=== PATIENT | female | born 1965 | race Caucasian/White ===

== ENCOUNTER 2016-11-11 13:43 | Observation (INO) | payer OTHER ==
[2016-11-11] MEDS ORDERED: Aspirin 325 mg EC Tablets PO STA (14:07)
[2016-11-11 14:36] LABS: BASO # 0.1 K/uL (0.0-0.2); EOS # 0.2 K/uL (0.0-0.7); EOS % 2.8 % (0.0-4.0); HEMATOCRIT 35.8 % (34.0-47.0); LYMPH # 2.1 K/uL (1.0-4.3); MEAN CORPUSCULAR HEMOGLOBIN 29.1 pg (27.0-31.0); MEAN CORPUSCULAR HGB CONC 33.8 g/dL (33.0-37.0); MEAN PLATELET VOLUME 7.2 fL (7.2-11.7); MONO # 0.4 K/uL (0.0-0.8); MONO % 6.8 % (0.0-10.0); RED CELL DISTRIBUTION WIDTH 13.8 % (11.5-14.5); WHITE BLOOD COUNT 5.6 K/uL (4.8-10.8)
[2016-11-11 14:45] LABS: CHLORIDE 104 mmol/L (98-107); POTASSIUM 3.7 mmol/L (3.6-5.2); SODIUM 142 mmol/L (132-148)
[2016-11-11 14:47] LABS: GFR AFRICAN-AMERICAN > 60
[2016-11-11 14:48] LABS: ALB/GLOB RATIO 1.2 (1.0-2.1); ALKALINE PHOSPHATASE 54 U/L (38-126); ALT/SGPT 33 U/L (9-52); AST/SGOT 30 U/L (14-36); BILIRUBIN,TOTAL 0.6 mg/dL (0.2-1.3); BLOOD UREA NITROGEN 11 mg/dL (7-17); CALCIUM 8.8 mg/dl (8.6-10.4); CARBON DIOXIDE 27 mmol/L (22-30); GLUCOSE,RANDOM 88 mg/dL (65-105); TOTAL PROTEIN 7.4 g/dL (6.3-8.3)
--- NOTE | 2016-11-11 14:56 | RAD ---
PROCEDURE: CHEST RADIOGRAPH, 1 VIEW HISTORY: chest pain COMPARISON: 01/09/2016 FINDINGS: LUNGS: No focal infiltrate or effusion. PLEURA: No pneumothorax or pleural fluid seen. CARDIOVASCULAR: Normal. OSSEOUS STRUCTURES: No significant abnormalities. VISUALIZED UPPER ABDOMEN: Normal. OTHER FINDINGS: None. IMPRESSION: No active disease.
[2016-11-11 15:03] LABS: INR 1.1; PARTIAL THROMBOPLASTIN TIME 33 SECONDS (21-34)
--- NOTE | 2016-11-11 16:15 | C.PDOC ---
Time Seen by Provider: 11/11/16 13:56 Chief Complaint (Nursing): Chest Pain History Per: Patient, Family, Forklift Operator History/Exam Limitations: language barrier Onset/Duration Of Symptoms: Hrs (since this morning) Current Symptoms Are (Timing): Still Present Severity: Moderate Quality: "Pain" Associated Symptoms: Dyspnea Modifying Factors: Other Indicated Below Alleviating Factors: None Additional History Per: Prior Records Past Medical History Reviewed: Historical Data, Nursing Documentation, Vital Signs Vital Signs: Last Vital Signs Temp 98.4 F 11/11/16 13:50 Pulse 51 L 11/11/16 16:02 Resp 20 11/11/16 16:02 BP 127/62 11/11/16 16:02 Pulse Ox 100 11/11/16 16:02 - Medical History PMH: HTN Surgical History: Coronary Stent, Family History: States: Unknown Family Hx - Social History Hx Alcohol Use: No Hx Substance Use: No - Immunization History Hx Influenza Vaccination: No Hx Pneumococcal Vaccination: No Review Of Systems Except As Marked, All Systems Reviewed And Found Negative. Constitutional: Negative for: Fever, Weakness Cardiovascular: Positive for: Chest Pain Respiratory: Positive for: Shortness of Breath. Negative for: Hemoptysis Gastrointestinal: Negative for: Vomiting, Abdominal Pain Musculoskeletal: Positive for: Arm Pain (left) Skin: Negative for: Rash Neurological: Negative for: Weakness, Numbness, Seizures, Altered Mental Status Physical Exam - Physical Exam Appears: No Acute Distress Skin: Normal Color, Warm, Dry Head: Atraumatic Eye(s): bilateral: PERRL, EOMI Neck: Normal ROM, Supple Cardiovascular: Rhythm Regular (bradycardia) Respiratory: Normal Breath Sounds, No Accessory Muscle Use Gastrointestinal/Abdominal: Soft, No Tenderness Extremity: Normal ROM, No Pedal Edema, No Calf Tenderness Neurological/Psych: Oriented x3, Normal Motor, Normal Sensation ED Course And Treatment - Laboratory Results Result Diagrams: 11/11/16 14:29 11/11/16 14:29 Lab Interpretation: No Acute Changes ECG: Interpreted By Me, Viewed By Me ECG Rhythm: Sinus Bradycardia, Nonspecific Changes ECG Interpretation: Abnormal Rate From EC O2 Sat by Pulse Oximetry: 100 Pulse Ox Interpretation: Normal - Radiology CXR: Viewed By Me, Read By Radiologist CXR Interpretation: Yes: No Acute Disease Progress - Interventions Interventions:: Observation, Oxygen - Medications Administered Oral: Aspirin - Data Reviewed Data Reviewed: Lab, Diagnostic imaging, EKG, Old records - Patient Status Patient status: Partially improved - Continuity of Care Discussed patient case with:: Patient, Family-HIPPA compliant, ED Nurse, On- call PMD-pt unassigned Disposition Discussed With : Igor Evans Comment: He accepted pt on hospitalist service. Doctor Will See Patient In The: Hospital Counseled Patient/Family Regarding: Studies Performed, Diagnosis - Disposition Disposition: HOSPITALIZED Disposition Time: 16:17 Condition: FAIR - Clinical Impression Clinical Impression: Chest pain, rule out acute myocardial infarction, Sinus bradycardia
--- NOTE | 2016-11-11 17:06 | CP.PCM.HP ---
History of Present Illness - History of Present Illness History of Present Illness: CC: Chest Pain Patient is a 51 year old female with past medical history HTN and MN 5 years ago in [facility] who presents to ED with complaint of chest pain that began at 2AM. Patient reports similar pain 5 years ago when she had an MN. Patient states that the pain comes and goes and she feels the pain radiate to her left arm and back. Pain is partially reproducible but also occurs without pressing on her chest. Patient states she also has a headache with the chest pain and felt dizzy/ faint. Patient also complains of cough but states it is not productive. Patient complains of pain on inspiration, with pain localizing to lower back. Patient reports diarrhea for 3 days- watery stools, as well as dysuria. Patient denies nausea, vomiting, diaphoresis. Patient also reports leg swelling. At time of examination patient reported improvement in pain. PMD: [facility] Cardio: [facility] PMHx: HTN, MN Meds: enalapril 20mg PO BID, Coreg 6.25mg PO BID, HCTZ 25mg, asa 81mg PSHx: x 1, cardiac cath in [facility] 5 years ago- no stents per patient FamHx: mother MN @ age 50, father with heart disease Social: never smoked, denies alcohol use, lives with , does not work Present on Admission - Present on Admission Any Indicators Present on Admission: No Review of Systems - Constitutional Constitutional: Weakness. absent: Chills, Fever - EENT Eyes: absent: Change in Vision Nose/Mouth/Throat: absent: Nasal Congestion - Cardiovascular Cardiovascular: Chest Pain, Pain Radiating to Arm/Neck/Jaw, Lightheadedness, Pedal Edema, Radiating Pain. absent: Dyspnea - Respiratory Respiratory: Cough - Gastrointestinal Gastrointestinal: Diarrhea. absent: Nausea, Vomiting - Genitourinary Genitourinary: Dysuria - Musculoskeletal Musculoskeletal: Back Pain - Neurological Neurological: Dizziness, Weakness. absent: Confusion Past Patient History - Infectious Disease Hx of Infectious Diseases: None - Past Social History Smoking Status: Never Smoked - CARDIAC Hx Hypertension: Yes - PSYCHIATRIC Hx Substance Use: No - SURGICAL HISTORY Hx Coronary Stent: Yes - ANESTHESIA Hx Anesthesia: Yes Hx Anesthesia Reactions: No Meds Allergies/Adverse Reactions: Allergies Allergy/AdvReac Type Severity Reaction Status Date / Time ampicillin Allergy Verified 11/11/16 13:48 Penicillins Allergy Verified 11/11/16 13:48 Physical Exam - Constitutional Appears: Non-toxic, No Acute Distress, Other (uncomfortable) - Head Exam Head Exam: ATRAUMATIC, NORMOCEPHALIC - Eye Exam Eye Exam: EOMI - ENT Exam ENT Exam: Mucous Membranes Moist - Neck Exam Neck exam: Positive for: Normal Inspection - Cardiovascular Exam Cardiovascular Exam: Bradycardia, +S1, +S2 Additional comments: tenderness on palpation of sternum - GI/Abdominal Exam GI & Abdominal Exam: Normal Bowel Sounds, Soft. absent: Tenderness - Extremities Exam Extremities exam: Positive for: pedal edema (mild non-pitting edema bilateral lower extremities) - Neurological Exam Neurological exam: Alert, Oriented x3 - Psychiatric Exam Psychiatric exam: Normal Affect - Skin Skin Exam: Warm Results - Vital Signs Recent Vital Signs: Last Vital Signs Temp 98.4 F 11/11/16 13:50 Pulse 51 L 11/11/16 16:02 Resp 20 11/11/16 16:02 BP 127/62 11/11/16 16:02 Pulse Ox 100 11/11/16 16:18 - Labs Result Diagrams: 11/11/16 14:29 11/11/16 14:29 Assessment & Plan - Assessment and Plan (Free Text) Assessment: 51 year old female with PMHx of [place] 5 years ago, positive family history for [place], presenting with chest pain that radiates to left arm and back Chest pain, R/O ACS EKG with sinus bradycardia at 48bpm will monitor on telemetry first KANE negative, will trend x 2 will check thyroid studies, Hgb a1c, lipid panel will repeat EKG tomorrow AM d-dimer <200 In clinic, patient sees Dr. Plaza, cardiology, consulted- help appreciated HTN will continue home medications: coreg, HCTZ, enalapril Prophylaxis heparin 5000u sc
[2016-11-11 20:26] VITALS: RESP 20
[2016-11-11] MEDS ORDERED: Nitroglycerin 2% Ointment Foilpak UD TOP STA (23:06)
--- NOTE | 2016-11-11 23:12 | PCM.RRTMUL ---
BLACK TOPPER Nurses Assessment - Situation BLACK TOPPER Responder Arrival Time:: 20:57 BLACK TOPPER Reason for Call: Chest Pain BLACK TOPPER Called By: RN - Respiratory Oxygen Delivery Method:: Nasal Cannula - Medication Medications Administered During BLACK TOPPER :: half inch of nitro - Vital Signs Blood Pressure:: 115/74 Pulse Rate:: 50 Respiratory Rate:: 20 Temperature:: 98.4 F - [place] Coma Scale Coma Scale Eye Opening:: Spontaneous Coma Scale Motor:: Obeys Commands Movement Coma Scale Verbal:: Oriented Coma Scale Total:: 15 - Recommendations 6) Notifications: Attending Physician, Family or Designated Caregiver
[2016-11-12] MEDS ORDERED: Sodium Chloride 0.9% 500 ML IV ONE (05:40)
--- NOTE | 2016-11-12 05:40 | CP.PCM.CON ---
Past Patient History - Infectious Disease Hx of Infectious Diseases: None - Past Medical History & Family History Past Medical History?: Yes - Past Social History Smoking Status: Never Smoked - CARDIAC Hx Heart Attack: Yes (5 years ago in [facility]) Hx Hypertension: Yes - MUSCULOSKELETAL/RHEUMATOLOGICAL Hx Falls: No - PSYCHIATRIC Hx Substance Use: No - SURGICAL HISTORY Hx Cardiac Catheterization: Yes Hx Coronary Stent: Yes - ANESTHESIA Hx Anesthesia: Yes Hx Anesthesia Reactions: No Meds Allergies/Adverse Reactions: Allergies Allergy/AdvReac Type Severity Reaction Status Date / Time ampicillin Allergy Verified 11/11/16 13:48 Penicillins Allergy Verified 11/11/16 13:48 - Medications Medications: Current Medications Acetaminophen (Tylenol 325mg Tab) 650 mg PO Q6 PRN PRN Reason: Pain, Mild (1-3) Aspirin (Aspirin Chewable) 81 mg PO DAILY [facility] Carvedilol (Coreg) 6.25 mg PO BID [facility] Last Admin: 11/11/16 20:00 Dose: Not Given Enalapril Maleate (Vasotec) 20 mg PO BID [facility] Last Admin: 11/11/16 20:00 Dose: Not Given Heparin Sodium (Porcine) (Heparin) 5,000 units SC Q8 [facility] Last Admin: 11/11/16 23:41 Dose: 5,000 units Hydrochlorothiazide (Hydrodiuril) 25 mg PO DAILY [facility] Pneumococcal Polyvalent Vaccine (Pneumovax 23 Vaccine) 0.5 ml IM .ONCE ONE Stop: 11/14/16 10:01 Rosuvastatin Calcium (Crestor) 5 mg PO HS [facility] Last Admin: 11/11/16 23:41 Dose: 5 mg Results - Vital Signs Recent Vital Signs: Last Vital Signs Temp 98.2 F 11/12/16 04:33 Pulse 50 L 11/12/16 04:33 Resp 20 11/12/16 04:33 BP 95/56 L 11/12/16 04:33 Pulse Ox 97 11/12/16 04:33 - Labs Result Diagrams: 11/11/16 14:29 11/11/16 14:29 Labs: Laboratory Results - last 24 hr 11/11/16 11/12/16 21:13 02:11 Total Creatine Kinase 99 94 CK-MB (Mass) 0.58 0.49 Troponin I, Quant < 0.0120 < 0.0120
[2016-11-12 07:33] LABS: BASO % 0.7 % (0.0-2.0); EOS # 0.2 K/uL (0.0-0.7); EOS % 3.4 % (0.0-4.0); LYMPH # 2.3 K/uL (1.0-4.3); LYMPH % 44.8 % (20.0-40.0); MEAN CELL VOLUME 86.8 fL (81.0-99.0); MEAN CORPUSCULAR HEMOGLOBIN 29.4 pg (27.0-31.0); MEAN CORPUSCULAR HGB CONC 33.8 g/dL (33.0-37.0); MEAN PLATELET VOLUME 7.4 fL (7.2-11.7); MONO # 0.3 K/uL (0.0-0.8); MONO % 6.6 % (0.0-10.0); NRBC % 0.1 % (0.0-2.0); RED CELL DISTRIBUTION WIDTH 14.1 % (11.5-14.5); WHITE BLOOD COUNT 5.1 K/uL (4.8-10.8)
[2016-11-12 07:56] LABS: CHLORIDE 105 mmol/L (98-107)
[2016-11-12 07:57] LABS: POTASSIUM 3.6 mmol/L (3.6-5.2); SODIUM 141 mmol/L (132-148)
[2016-11-12 07:59] LABS: ALB/GLOB RATIO 1.1 (1.0-2.1); ALKALINE PHOSPHATASE 52 U/L (38-126); AST/SGOT 21 U/L (14-36); BILIRUBIN,TOTAL 0.5 mg/dL (0.2-1.3); BLOOD UREA NITROGEN 14 mg/dL (7-17); CARBON DIOXIDE 26 mmol/L (22-30); CHOLESTEROL 148 mg/dL (0-199); GFR AFRICAN-AMERICAN > 60; GLUCOSE,RANDOM 89 mg/dL (65-105); TOTAL PROTEIN 6.7 g/dL (6.3-8.3)
[2016-11-12 08:00] LABS: ALT/SGPT 31 U/L (9-52); CALCIUM 8.4 mg/dl (8.6-10.4)
[2016-11-12 08:06] LABS: THYROID STIMULATING HORMONE 3.57 mIU/L (0.46-4.68)
[2016-11-12] MEDS ORDERED: Pantoprazole 40 mg EC Tab PO SCH (10:00)
[2016-11-12] MEDS ORDERED: Potassium Chloride 20 mEq ER Tab PO ONE (13:43)
--- NOTE | 2016-11-12 21:20 | CP.PCM.PN ---
Subjective - Date & Time of Evaluation Date of Evaluation: 11/12/16 Time of Evaluation: 10:00 - Subjective Subjective: PGY2 on medicine Dr. Parnell service: Pt seen and examined at bedside this morning. 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 No other complaints at this time. Objective - Vital Signs/Intake and Output Vital Signs (last 24 hours): Temp Pulse Resp BP Pulse Ox 97.9 F 45 L 20 119/61 99 11/12/16 16:18 11/12/16 16:18 11/12/16 16:18 11/12/16 16:18 11/12/16 16:18 - Medications Medications: Current Medications Acetaminophen (Tylenol 325mg Tab) 650 mg PO Q6 PRN PRN Reason: Pain, Mild (1-3) Aspirin (Aspirin Chewable) 81 mg PO DAILY [facility] Last Admin: 11/12/16 09:31 Dose: 81 mg Carvedilol (Coreg) 6.25 mg PO BID [facility] Last Admin: 11/12/16 17:28 Dose: Not Given Enalapril Maleate (Vasotec) 20 mg PO BID [facility] Last Admin: 11/12/16 09:31 Dose: 20 mg Heparin Sodium (Porcine) (Heparin) 5,000 units SC Q8 [facility] Last Admin: 11/12/16 13:25 Dose: 5,000 units Hydrochlorothiazide (Hydrodiuril) 25 mg PO DAILY [facility] Last Admin: 11/12/16 09:30 Dose: 25 mg Ketorolac Tromethamine (Toradol) 30 mg IVP Q6 PRN PRN Reason: moderate pain Last Admin: 11/12/16 13:25 Dose: 30 mg Pneumococcal Polyvalent Vaccine (Pneumovax 23 Vaccine) 0.5 ml IM .ONCE ONE Stop: 11/14/16 10:01 Rosuvastatin Calcium (Crestor) 5 mg PO HS [facility] Last Admin: 11/11/16 23:41 Dose: 5 mg - Labs Labs: 11/12/16 07:15 11/12/16 07:15 PT 12.6 SECONDS (9.7-12.2) H 11/11/16 14:29 INR 1.1 11/11/16 14:29 APTT 33 SECONDS (21-34) 11/11/16 14:29 - Constitutional Appears: Non-toxic, No Acute Distress - Head Exam Head Exam: NORMOCEPHALIC - Eye Exam Eye Exam: Normal appearance Pupil Exam: NORMAL ACCOMODATION - Respiratory Exam Respiratory Exam: Chest Wall Tenderness, Clear to Ausculation Bilateral, NORMAL BREATHING PATTERN. absent: Rhonchi, Wheezes - Cardiovascular Exam Cardiovascular Exam: REGULAR RHYTHM, +S1, +S2. absent: Gallop, Rubs - GI/Abdominal Exam GI & Abdominal Exam: Soft, Normal Bowel Sounds. absent: Tenderness - Neurological Exam Neurological Exam: Alert, Awake, Oriented x3 - Psychiatric Exam Psychiatric exam: Normal Mood - Skin Skin Exam: Intact Assessment and Plan - Assessment and Plan (Free Text) Assessment: 51 year old female with PMHx of [place] 5 years ago, positive family history for AL, presenting with chest pain that radiates to left arm and back Chest pain, R/O ACS EKG with sinus bradycardia at 48bpm KANE negative. Repeat EKG today at rapid showed sinus bradycardia at 45bpm with QT at 580ms. d-dimer <200 Toradol PRN In clinic, patient sees Dr. Plaza, cardiology, consulted- help appreciated F/U ECHO HTN will continue home medications: coreg, HCTZ, enalapril Prophylaxis heparin 5000u sc
--- NOTE | 2016-11-13 05:19 | CP.PCM.PN ---
Subjective - Date & Time of Evaluation Date of Evaluation: 11/13/16 Time of Evaluation: 00:30 - Subjective Subjective: PGY1 on medicine Dr. Parnell service: Patient seen and examined at bedside this morning. Patient stated her chest pressure had improved and was a 3/10. Patient stated she had a headache. Patient denied of nausea, vomiting, difficulty breathing or shortness of breath. Objective - Vital Signs/Intake and Output Vital Signs (last 24 hours): Temp Pulse Resp BP Pulse Ox 98 F 46 L 20 110/69 100 11/13/16 04:22 11/13/16 04:22 11/13/16 04:22 11/13/16 04:22 11/13/16 04:22 - Medications Medications: Current Medications Acetaminophen (Tylenol 325mg Tab) 650 mg PO Q6 PRN PRN Reason: Pain, Mild (1-3) Aspirin (Aspirin Chewable) 81 mg PO DAILY [facility] Last Admin: 11/12/16 09:31 Dose: 81 mg Carvedilol (Coreg) 6.25 mg PO BID [facility] Last Admin: 11/12/16 17:28 Dose: Not Given Enalapril Maleate (Vasotec) 20 mg PO BID [facility] Last Admin: 11/12/16 18:00 Dose: Not Given Heparin Sodium (Porcine) (Heparin) 5,000 units SC Q8 [facility] Last Admin: 11/12/16 23:22 Dose: 5,000 units Hydrochlorothiazide (Hydrodiuril) 25 mg PO DAILY [facility] Last Admin: 11/12/16 09:30 Dose: 25 mg Ketorolac Tromethamine (Toradol) 30 mg IVP Q6 PRN PRN Reason: moderate pain Last Admin: 11/12/16 13:25 Dose: 30 mg Pneumococcal Polyvalent Vaccine (Pneumovax 23 Vaccine) 0.5 ml IM .ONCE ONE Stop: 11/14/16 10:01 Rosuvastatin Calcium (Crestor) 5 mg PO HS [facility] Last Admin: 11/12/16 23:22 Dose: 5 mg - Labs Labs: 11/12/16 07:15 11/12/16 07:15 PT 12.6 SECONDS (9.7-12.2) H 11/11/16 14:29 INR 1.1 11/11/16 14:29 APTT 33 SECONDS (21-34) 11/11/16 14:29 - Constitutional Appears: No Acute Distress - Head Exam Head Exam: NORMAL INSPECTION, NORMOCEPHALIC - Eye Exam Eye Exam: EOMI, Normal appearance, PERRL Pupil Exam: NORMAL ACCOMODATION - ENT Exam ENT Exam: Mucous Membranes Moist - Respiratory Exam Respiratory Exam: Clear to Ausculation Bilateral, NORMAL BREATHING PATTERN. absent: Rales, Rhonchi, Wheezes, Stridor - Cardiovascular Exam Cardiovascular Exam: REGULAR RHYTHM, RRR, +S1, +S2. absent: JVD - GI/Abdominal Exam GI & Abdominal Exam: Soft, Normal Bowel Sounds. absent: Guarding, Tenderness, Rebound - Extremities Exam Extremities Exam: Normal Capillary Refill. absent: Calf Tenderness, Joint Swelling, Pedal Edema, Tenderness - Neurological Exam Neurological Exam: Alert, Awake, Oriented x3 - Skin Skin Exam: Dry, Intact, Normal Color, Warm. absent: Rash Assessment and Plan - Assessment and Plan (Free Text) Assessment: 51 year old female with past medical history of [place] 5 years ago, positive family history for [place], presenting with chest pain that radiates to left arm and back Plan: 1.) Chest pain, R/O Acute Coronary Syndrome - EKG with sinus bradycardia at 48bpm - KANE negative x3 - Repeat EKG today at rapid showed (11/13/16) sinus bradycardia at 45bpm with QT at 580ms. - d-dimer <200 - Toradol PRN - In clinic, patient sees Dr. Plaza, cardiology, consulted --> help appreciated - f/u ECHO 2.) Hypertension - will continue home medications: coreg, HCTZ, enalapril 3.) Prophylaxis - heparin 5000u SC q8 - Pneumovax 23 Vaccine
--- NOTE | 2016-11-13 06:51 | CP.PCM.PN ---
Subjective - Date & Time of Evaluation Date of Evaluation: 11/13/16 Time of Evaluation: 06:51 Objective - Vital Signs/Intake and Output Vital Signs (last 24 hours): Temp Pulse Resp BP Pulse Ox 98 F 46 L 20 110/69 100 11/13/16 04:22 11/13/16 04:22 11/13/16 04:22 11/13/16 04:22 11/13/16 04:22 Intake and Output: 11/12/16 11/13/16 18:59 06:59 Intake Total 120 Balance 120 - Medications Medications: Current Medications Acetaminophen (Tylenol 325mg Tab) 650 mg PO Q6 PRN PRN Reason: Pain, Mild (1-3) Aspirin (Aspirin Chewable) 81 mg PO DAILY [facility] Last Admin: 11/12/16 09:31 Dose: 81 mg Carvedilol (Coreg) 6.25 mg PO BID [facility] Last Admin: 11/12/16 17:28 Dose: Not Given Enalapril Maleate (Vasotec) 20 mg PO BID [facility] Last Admin: 11/12/16 18:00 Dose: Not Given Heparin Sodium (Porcine) (Heparin) 5,000 units SC Q8 [facility] Last Admin: 11/13/16 05:28 Dose: 5,000 units Hydrochlorothiazide (Hydrodiuril) 25 mg PO DAILY [facility] Last Admin: 11/12/16 09:30 Dose: 25 mg Ketorolac Tromethamine (Toradol) 30 mg IVP Q6 PRN PRN Reason: moderate pain Last Admin: 11/12/16 13:25 Dose: 30 mg Pneumococcal Polyvalent Vaccine (Pneumovax 23 Vaccine) 0.5 ml IM .ONCE ONE Stop: 11/14/16 10:01 Rosuvastatin Calcium (Crestor) 5 mg PO [facility] Last Admin: 11/12/16 23:22 Dose: 5 mg - Labs Labs: 11/12/16 07:15 11/12/16 07:15 PT 12.6 SECONDS (9.7-12.2) H 11/11/16 14:29 INR 1.1 11/11/16 14:29 APTT 33 SECONDS (21-34) 11/11/16 14:29
[2016-11-13 07:39] LABS: BASO % 0.8 % (0.0-2.0); EOS # 0.2 K/uL (0.0-0.7); EOS % 3.2 % (0.0-4.0); HEMATOCRIT 35.7 % (34.0-47.0); LYMPH # 1.9 K/uL (1.0-4.3); LYMPH % 35.3 % (20.0-40.0); MEAN CELL VOLUME 86.1 fL (81.0-99.0); MEAN CORPUSCULAR HEMOGLOBIN 29.3 pg (27.0-31.0); MEAN PLATELET VOLUME 7.6 fL (7.2-11.7); MONO # 0.4 K/uL (0.0-0.8); MONO % 7.5 % (0.0-10.0); RED CELL DISTRIBUTION WIDTH 13.7 % (11.5-14.5); WHITE BLOOD COUNT 5.3 K/uL (4.8-10.8)
[2016-11-13 07:53] LABS: CHLORIDE 102 mmol/L (98-107); POTASSIUM 4.1 mmol/L (3.6-5.2); SODIUM 139 mmol/L (132-148)
[2016-11-13 07:55] LABS: AST/SGOT 20 U/L (14-36); BILIRUBIN,TOTAL 0.6 mg/dL (0.2-1.3); GFR AFRICAN-AMERICAN > 60
[2016-11-13 07:56] LABS: ALB/GLOB RATIO 1.1 (1.0-2.1); ALKALINE PHOSPHATASE 55 U/L (38-126); ALT/SGPT 26 U/L (9-52); BLOOD UREA NITROGEN 17 mg/dL (7-17); CALCIUM 8.7 mg/dl (8.6-10.4); CARBON DIOXIDE 28 mmol/L (22-30); GLUCOSE,RANDOM 97 mg/dL (65-105); PHOSPHOROUS 5.1 mg/dL (2.5-4.5); TOTAL PROTEIN 7.1 g/dL (6.3-8.3)
[2016-11-13 07:57] LABS: MAGNESIUM 2.3 mg/dL (1.6-2.3)
[2016-11-13 09:46] VITALS: TEMP 98.3
[2016-11-13] MEDS ORDERED: Pneumococcal 23-Valent Vaccine IM ONE (16:37)
[2016-11-13 17:23] VITALS: BP 106/56; PULSE 51; O2SAT 96
--- NOTE | 2016-11-13 22:07 | CARD ---
APPROVED REPORT EXAM: Two-dimensional and M-mode echocardiogram with Doppler and color Doppler. Other Information Quality : GoodRhythm : NSR INDICATION Chest Pain BRADYCARDIA M-Mode DIMENSIONS RVDd1.98 (2.1-3.2cm)Left Atrium (MM)4.45 (2.5-4.0cm) IVSd1.20 (0.7-1.1cm)Aortic Root2.58 (2.2-3.7cm) LVDd5.01 (4.0-5.6cm)Aortic Cusp Exc.1.67 (1.5-2.0cm) PWd1.14 (0.7-1.1cm)FS (%) 43 % LVDs2.86 (2.0-3.8cm)LVEF (%)74 (>50%) Mitral Valve MV E Wrmtxeqb941.3cm/sMV A Iojuxevi76.6cm/sE/A ratio1.6 TDI E/Lateral E'0.0E/Medial E'0.0 Tricuspid Valve TR Peak [id number]/sTR Peak Gr.[id number] LEFT VENTRICLE The left ventricle is normal size. There is normal left ventricular wall thickness. Left ventricle systolic function is normal with Ejection Fraction of >70%. There is normal LV segmental wall motion. Transmitral Doppler flow pattern is normal for age. No left ventricle thrombus noted on this study. RIGHT VENTRICLE The right ventricle is normal size. The right ventricular systolic function is normal. ATRIA The left atrium is mildly dilated. The right atrium size is normal. AORTIC VALVE The aortic valve is mildly thickened. The aortic valve is trileaflet. No aortic regurgitation is present. There is no aortic valvular stenosis. There is no aortic valvular vegetation. MITRAL VALVE Mitral annular calcification is mild. There is no evidence of mitral valve prolapse. There is no mitral valve stenosis. Mitral regurgitation is trace to mild. TRICUSPID VALVE The tricuspid valve is normal in structure. There is mild tricuspid regurgitation. Right ventricular systolic pressure is estimated at 30-40 mmHg. There is no pulmonary hypertension. There is no tricuspid valve prolapse or vegetation. There is no tricuspid valve stenosis. PULMONIC VALVE The pulmonic valve is not well visualized. There is no pulmonic valvular regurgitation. GREAT VESSELS The aortic root is normal in size. The IVC is normal in size and collapses >50% with inspiration. PERICARDIAL EFFUSION There is no pericardial effusion. There is no pleural effusion. <Conclusion> The left ventricle is normal size. Left ventricle systolic function is normal with Ejection Fraction of >70%. Transmitral Doppler flow pattern is normal for age. The right ventricle is normal size. The right ventricular systolic function is normal. The left atrium is mildly dilated. The right atrium size is normal. Mitral regurgitation is trace to mild. This is an essentially normal. M-mode, 2D and doppler echocardiogram.
--- NOTE | 2016-11-14 00:11 | CP.PCM.DIS ---
Provider - Provider Date of Admission: 11/11/16 16:18 Attending physician: Igor Evans MD Primary care physician: [facility] Consults: Dr. Plaza Time Spent in preparation of Discharge (in minutes): 35 Hospital Course - Lab Results Lab Results: Most Recent Lab Values WBC 5.3 K/uL (4.8-10.8) 11/13/16 07: RBC 4.14 Mil/uL (3.80-5.20) 11/13/16 07:27 Hgb 12.1 g/dL (11.0-16.0) 11/13/16 07: Hct 35.7 % (34.0-47.0) 11/13/16 07: MCV 86.1 fL (81.0-99.0) 11/13/16 07: MCH 29.3 pg (27.0-31.0) 11/13/16 07: MCHC 34.0 g/dL (33.0-37.0) 11/13/16 07: RDW 13.7 % (11.5-14.5) 11/13/16 07:27 Plt Count 243 K/uL (130-400) 11/13/16 07: MPV 7.6 fL (7.2-11.7) 11/13/16 07:27 Neut % (Auto) 53.2 % (50.0-75.0) 11/13/16 07: Lymph % (Auto) 35.3 % (20.0-40.0) 11/13/16 07: [place] % (Auto) 7.5 % (0.0-10.0) 11/13/16 07:27 Eos % (Auto) 3.2 % (0.0-4.0) 11/13/16 07:27 Baso % (Auto) 0.8 % (0.0-2.0) 11/13/16 07: Neut # 2.8 K/uL (1.8-7.0) 11/13/16 07:27 Lymph # 1.9 K/uL (1.0-4.3) 11/13/16 07: [place] # 0.4 K/uL (0.0-0.8) 11/13/16 07:27 Eos # 0.2 K/uL (0.0-0.7) 11/13/16 07:27 Baso # 0.0 K/uL (0.0-0.2) 11/13/16 07:27 PT 12.6 SECONDS (9.7-12.2) H 11/11/16 14:29 INR 1.1 11/11/16 14:29 APTT 33 SECONDS (21-34) 11/11/16 14:29 D-Dimer, Quantitative < 200 ng/mlDDU (0-243) 11/11/16 14:29 Sodium 139 mmol/L (132-148) 11/13/16 07:27 Potassium 4.1 mmol/L (3.6-5.2) 11/13/16 07:27 Chloride 102 mmol/L (98-107) 11/13/16 07:27 Carbon Dioxide 28 mmol/L (22-30) 11/13/16 07:27 Anion Gap 14 (10-20) 11/13/16 07:27 BUN 17 mg/dL (7-17) 11/13/16 07:27 Creatinine 0.7 MG/DL (0.7-1.2) 11/13/16 07:27 Est GFR ( Amer) > 60 11/13/16 07:27 Est GFR (Non-Af Amer) > 60 11/13/16 07:27 Random Glucose 97 mg/dL (65-105) 11/13/16 07:27 Calcium 8.7 mg/dl (8.6-10.4) 11/13/16 07:27 Phosphorus 5.1 mg/dL (2.5-4.5) H 11/13/16 07:27 Magnesium 2.3 mg/dL (1.6-2.3) 11/13/16 07:27 Total Bilirubin 0.6 mg/dL (0.2-1.3) 11/13/16 07:27 AST 20 U/L (14-36) 11/13/16 07:27 ALT 26 U/L (9-52) 11/13/16 07:27 Alkaline Phosphatase 55 U/L (38-126) 11/13/16 07:27 Total Creatine Kinase 94 U/L (30-135) 11/12/16 02:11 CK-MB (Mass) 0.49 ng/mL (0.0-3.38) 11/12/16 02:11 Troponin I < 0.0120 ng/mL (0.00-0.120) 11/11/16 14:29 Troponin I, Quant < 0.0120 ng/mL (0.00-0.120) 11/12/16 02:11 NT-Pro-B Natriuret Pep 226 pg/mL (0-900) 11/11/16 14:29 Total Protein 7.1 g/dL (6.3-8.3) 11/13/16 07:27 Albumin 3.7 g/dL (3.5-5.0) 11/13/16 07:27 Globulin 3.4 gm/dL (2.2-3.9) 11/13/16 07:27 Albumin/Globulin Ratio 1.1 (1.0-2.1) 11/13/16 07:27 Triglycerides 266 mg/dL (0-149) H D 11/12/16 07:15 Cholesterol 148 mg/dL (0-199) 11/12/16 07:15 LDL Cholesterol Direct 85 mg/dL (0-129) 11/12/16 07:15 HDL Cholesterol 20 mg/dL (30-70) L 11/12/16 07:15 Free T4 0.82 ng/dL (0.78-2.19) 11/12/16 07:15 TSH 3rd Generation 3.57 mIU/L (0.46-4.68) 11/12/16 07:15 - Hospital Course Hospital Course: Patient is a 51 year old female with past medical history HTN and GA 5 years ago in [facility] who presents to ED with complaint of chest pain that began at 2AM. Patient reports similar pain 5 years ago when she had an GA. Patient states that the pain comes and goes and she feels the pain radiate to her left arm and back. Pain is partially reproducible but also occurs without pressing on her chest. Patient states she also has a headache with the chest pain and felt dizzy/ faint. Patient also complains of cough but states it is not productive. Patient complains of pain on inspiration, with pain localizing to lower back. Patient reports diarrhea for 3 days- watery stools, as well as dysuria. Patient denies nausea, vomiting, diaphoresis. Patient also reports leg swelling. At time of examination patient reported improvement in pain. Cardio Dr. Plaza was consulted. EKG showed sinus bradycardia with prolonged QT. ROMIs negative. HOSPITAL CHIEF FINANCIAL OFFICER was called for chest pain and improved after nitro. ECHO was reviewed and revealed EF of 75%. Pt was discharged with her home medication, ASA 81mg PO daily, Enalapril 40mg PO daily (patient requests two tablets of 20mg), HCTZ 25mg PO daily and Crestor 5mg PO HS. Coreg was stopped due to bradycardia. Pt instructed to follow up with clinic and Dr. Plaza. For more information please see chart. Discharge Exam - Head Exam Head Exam: NORMAL INSPECTION, NORMOCEPHALIC - Eye Exam Eye Exam: Normal appearance Pupil Exam: NORMAL ACCOMODATION - Respiratory Exam Respiratory Exam: Clear to PA & Lateral, NORMAL BREATHING PATTERN - Cardiovascular Exam Cardiovascular Exam: REGULAR RHYTHM, +S1 - Neurological Exam Neurological exam: Alert, Oriented x3 Discharge Plan - Discharge Medications Prescriptions: Aspirin [Aspirin Chewable] 81 mg PO DAILY #30 Enalapril Maleate [Vasotec] 20 mg PO BID #60 tab hydroCHLOROthiazide [Hydrodiuril] 25 mg PO DAILY #30 tab Rosuvastatin Calcium [Crestor] 5 mg PO HS #30 tab - Follow Up Plan Condition: IMPROVED Disposition: HOME/ ROUTINE Instructions: Enalapril (By mouth), Hydrochlorothiazide (By mouth), Aspirin ( By mouth), Rosuvastatin (By mouth), Chest Pain (DC), Bradycardia (DC) Additional Instructions: Discharged per Dr. Parnell and Dr. Plaza. Please fill and take your medication as prescribed. Do not start taking Coreg. Make appointment and follow up with [facility] and with Dr. Plaza within 1-2 weeks. Come to ED if symptoms reoccurred. Referrals: [facility] at [facility] [Outside] Desiree Plaza MD [Staff Provider] -
[2016-11-14] MEDS ORDERED: Pneumococcal 23-Valent Vaccine IM ONE (10:00)
== END 2016-11-13 19:00 | disposition home or self-care (01) ==
LOC: C.ER 13:43 → C.9E 16:18 → C.6T 18:11
PROVIDERS: ADMIT Internal Medicine; ATTEND Internal Medicine
DX: R07.9 Chest pain, unspecified (principal); R00.1 Bradycardia, unspecified; I10 Essential (primary) hypertension; I25.2 Old myocardial infarction; Z23 Encounter for immunization
CPT/HCPCS: 36415; 71010; 80053; 80061; 83036; 83735; 83880; 84100; 84439; 84443; 84484; 85025; 85378; 85610; 85730; 90471; 90732; 93306; 99285; G0378; J1644; J1885

== ENCOUNTER 2016-12-14 17:27 | Emergency (ER) | payer OTHER, SELFPAY ==
[2016-12-12 15:07] VITALS: BMI 26.2
[2016-12-14 17:39] VITALS: O2SAT 98
[2016-12-14] MEDS ORDERED: Iohexol 240 (50 ml) PO STA (18:38)
[2016-12-14] MEDS ORDERED: Sodium Chloride 0.9% 1,000 ML IV ONE (18:38)
[2016-12-14] MEDS ORDERED: Iohexol 240 (50 ml) ONE (18:44)
[2016-12-14 18:48] LABS: BASO % 0.6 % (0.0-2.0); EOS # 0.3 K/uL (0.0-0.7); EOS % 4.6 % (0.0-4.0); HEMATOCRIT 35.8 % (34.0-47.0); LYMPH # 2.3 K/uL (1.0-4.3); LYMPH % 34.8 % (20.0-40.0); MEAN CELL VOLUME 85.8 fL (81.0-99.0); MEAN CORPUSCULAR HGB CONC 34.9 g/dL (33.0-37.0); MEAN PLATELET VOLUME 7.1 fL (7.2-11.7); MONO # 0.5 K/uL (0.0-0.8); MONO % 7.4 % (0.0-10.0); NRBC % 0.1 % (0.0-2.0); RED CELL DISTRIBUTION WIDTH 13.6 % (11.5-14.5); WHITE BLOOD COUNT 6.5 K/uL (4.8-10.8)
[2016-12-14 18:55] LABS: CHLORIDE 97 mmol/L (98-107); POTASSIUM 3.6 mmol/L (3.6-5.2); SODIUM 140 mmol/L (132-148)
[2016-12-14 18:57] LABS: BILIRUBIN,TOTAL 0.5 mg/dL (0.2-1.3); CARBON DIOXIDE 29 mmol/L (22-30); GFR AFRICAN-AMERICAN > 60; INR 1.1
[2016-12-14 18:58] LABS: ALB/GLOB RATIO 1.1 (1.0-2.1); ALKALINE PHOSPHATASE 50 U/L (38-126); ALT/SGPT 44 U/L (9-52); AST/SGOT 29 U/L (14-36); BLOOD UREA NITROGEN 12 mg/dL (7-17); CALCIUM 8.5 mg/dl (8.6-10.4); GLUCOSE,RANDOM 105 mg/dL (65-105); TOTAL PROTEIN 7.4 g/dL (6.3-8.3)
[2016-12-14] MEDS ORDERED: Iohexol 300 100 ML IJ ONE (19:12)
[2016-12-14 19:37] LABS: RBC URINE 2 /hpf (0-3); URINE BILIRUBIN NEGATIVE (NEGATIVE); URINE BLOOD NEGATIVE (NEGATIVE); URINE COLOR Yellow (YELLOW); URINE GLUCOSE (UA) NORMAL (Normal); URINE KETONE NEGATIVE (NEGATIVE); URINE LEUKOCYTE ESTERASE NEG Leu/uL (Negative); URINE PROTEIN NEGATIVE (NEGATIVE); URINE UROBILINOGEN NORMAL mg/dL (0.2-1.0); WBC URINE 2 /hpf (0-5)
--- NOTE | 2016-12-14 20:55 | CT ---
EXAM: CT Abdomen and Pelvis With Intravenous Contrast CLINICAL HISTORY: 51 years old, female; Pain and signs and symptoms; Other: Rectal bleeding; Abdominal pain; Generalized; Additional info: Abd pain, bloody diarrhea TECHNIQUE: Axial computed tomography images of the abdomen and pelvis with intravenous contrast. This CT exam was performed using one or more of the following dose reduction techniques: automated exposure control, adjustment of the mA and/or kV according to patient size, and/or use of iterative reconstruction technique. Coronal and sagittal reformatted images were created and reviewed. CONTRAST: 100 mL of OMNIPAQUE 300 administered intravenously. EXAM DATE/TIME: 12/14/2016 6:39 PM COMPARISON: There are no prior studies for comparison. FINDINGS: Lower thorax: Heart size is at the upper limits of normal. There is dependent atelectasis at the lung bases. ABDOMEN: Liver: There is fatty infiltration of the liver. Gallbladder and bile ducts: unremarkable Pancreas: unremarkable Spleen: There is a punctate calcification in the spleen. Adrenals: unremarkable Kidneys and ureters: There is focal scarring in both kidneys.There is no pelvocaliectasis or ureterectasis. Stomach and bowel: Stomach is incompletely distended. Rotation is normal. There is no obstruction. Terminal ileum and appendix are unremarkable. There is moderate stool in the colon. Appendix: See above. PELVIS: Bladder: unremarkable Reproductive: Uterus and adnexal structures are unremarkable. ABDOMEN and PELVIS: Intraperitoneal space: There is trace free fluid.There is no free air. Bones/joints: There are degenerative changes in the osseus structures. Soft tissues: There is a fat-containing umbilical hernia. There small calcified granulomas in the buttocks. Vasculature: unremarkable Lymph nodes: Vascular structures are unremarkable.There is no pathologic adenopathy. IMPRESSION: Fatty liver, no acute solid visceral or bowel abnormality
--- NOTE | 2016-12-14 21:36 | C.PDOC ---
Time Seen by Provider: 12/14/16 17:57 Chief Complaint (Nursing): Abdominal Pain History Per: Patient Onset/Duration Of Symptoms: Days (1) Current Symptoms Are (Timing): Still Present Severity: Moderate Location Of Pain/Discomfort: Epigastric, LUQ, LLQ Associated Symptoms: Diarrhea (Loose stools?), Constipation (?) Alleviating Factors: None Last Bowel Movement: Today Additional History Per: Prior Records Abnormal Vaginal Bleeding: No Past Medical History Reviewed: Historical Data, Nursing Documentation, Vital Signs Vital Signs: Last Vital Signs Temp 98.2 F 12/14/16 17:38 Pulse 72 12/14/16 18:59 Resp 16 12/14/16 18:59 BP 118/77 12/14/16 18:59 Pulse Ox 98 12/14/16 18:59 - Medical History PMH: HTN Surgical History: Coronary Stent (unknown), Family History: States: Unknown Family Hx - Social History Hx Alcohol Use: No Hx Substance Use: No - Immunization History Hx Tetanus Toxoid Vaccination: No Hx Influenza Vaccination: No Hx Pneumococcal Vaccination: Yes Review Of Systems Except As Marked, All Systems Reviewed And Found Negative. Constitutional: Negative for: Fever, Weakness Cardiovascular: Negative for: Chest Pain Respiratory: Negative for: Shortness of Breath Gastrointestinal: Positive for: Abdominal Pain, Constipation, Hematochezia, Rectal Pain. Negative for: Vomiting, Melena, Hematemesis Genitourinary: Negative for: Dysuria Musculoskeletal: Negative for: Neck Pain, Back Pain Skin: Negative for: Rash Neurological: Negative for: Weakness, Numbness, Seizures, Altered Mental Status Physical Exam - Physical Exam Appears: Non-toxic, No Acute Distress Skin: Normal Color, Warm, Dry, No Rash Head: Atraumatic, Normacephalic Eye(s): bilateral: Normal Inspection, PERRL, EOMI Oral Mucosa: Moist Neck: Normal ROM, Supple Cardiovascular: Rhythm Regular Respiratory: Normal Breath Sounds, No Accessory Muscle Use Gastrointestinal/Abdominal: Soft, Tenderness (left sided), No Guarding, No Rebound Rectal: Heme Positive, Hemorrhoids Back: No CVA Tenderness Extremity: Normal ROM Neurological/Psych: Oriented x3, Normal Motor, Normal Sensation ED Course And Treatment - Laboratory Results Result Diagrams: 12/14/16 18:43 12/14/16 18:43 Urine POC: Negative O2 Sat by Pulse Oximetry: 98 Pulse Ox Interpretation: Normal - CT Scan/US CT abdomen/pelvis Other Rad Studies (CT/US): Read By Radiologist, Radiology Report Reviewed CT/US Interpretation: IMPRESSION: Fatty liver, no acute solid visceral or bowel abnormality Progress - Interventions Interventions:: Observation, Intravenous fluid - Data Reviewed Data Reviewed: Lab, Diagnostic imaging, Old records - Patient Status Patient status: Mostly improved - Continuity of Care Discussed patient case with:: Patient, Family-HIPPA compliant, ED Nurse - Patient Plan Patient Plan: Discharge, F/U with PCP, Continue present meds Disposition Counseled Patient/Family Regarding: Studies Performed, Diagnosis, Need For Followup, Rx Given - Disposition Referrals: [facility] at [facility] [Outside] Disposition: HOME/ ROUTINE Disposition Time: 21:38 Condition: STABLE Additional Instructions: Follow up with your doctor for further evaluation and treatment, including colonoscopy. Return to the ER if you develop fever, vomiting, dizziness, worsening of symptoms or if you have any other concerns. Prescriptions: Phenylephrine [Rukhsana-Med NF] 1 supp RC QID PRN #30 sup PRN Reason: Hemorrhoids Polyethylene Glycol 3350 [Miralax] 17 gm PO DAILY #7 packet Instructions: Abdominal Pain (ED) Forms: [employer] (Salvadorean) Print Language: CITIZEN OF [place] - Clinical Impression Clinical Impression: Retained feces, Abdominal pain, Fatty liver
[2016-12-14 21:48] VITALS: BP 120/73; PULSE 70; RESP 17; TEMP 97
== END 2016-12-14 21:48 | disposition home or self-care (01) ==
LOC: C.ER 17:27
DX: K59.00 Constipation, unspecified (principal); K76.0 Fatty (change of) liver, not elsewhere classified
CPT/HCPCS: 74177; 80053; 81001; 83690; 84703; 85025; 85610; 85730; 96374; 96375; 99285; C9113; G0328; J2765; J7040; Q9966; Q9967

== ENCOUNTER 2017-06-09 15:26 | Emergency (ER) | payer OTHER ==
[2017-06-09 15:26] VITALS: BMI 31.9
[2017-06-09 15:32] VITALS: O2SAT 98
--- NOTE | 2017-06-09 16:11 | C.PDOC ---
History Of Present Illness 52-YEAR-OLD FEMALE, IS SENT TO THE EMERGENCY DEPARTMENT FROM CLINIC WITH COMPLAINTS OF GI BLEED AND DIZZINESS. PS SHE HAS A HX OF GI BLEED BUT NEVER FOLLOWED A SPECIALIST. PT HAD GUAIAC DONE IN CLINIC WHICH WAS NEGATIVE. DENIES NAUSEA/VOMITING, ABDOMINAL PAIN, FEVERS, CHILLS, CHEST PAIN, SHORTNESS OF BREATH OR ANY OTHER ASSOCIATED SYMPTOMS. NO OTHER COMPLAINTS AT THIS TIME. Time Seen by Provider: 06/09/17 15:36 Chief Complaint (Nursing): GI Problem History Per: Patient History/Exam Limitations: no limitations Onset/Duration Of Symptoms: Days Current Symptoms Are (Timing): Still Present Past Medical History Reviewed: Historical Data, Nursing Documentation, Vital Signs Vital Signs: Last Vital Signs Temp 98.4 F 06/09/17 15:29 Pulse 60 06/09/17 15:29 Resp 18 06/09/17 15:29 BP 116/79 06/09/17 15:29 Pulse Ox 98 06/09/17 17:51 - Medical History PMH: HTN Surgical History: Coronary Stent (unknown), Family History: States: No Known Family Hx - Social History Hx Alcohol Use: No Hx Substance Use: No - Immunization History Hx Tetanus Toxoid Vaccination: No Hx Influenza Vaccination: No Hx Pneumococcal Vaccination: Yes Review Of Systems Except As Marked, All Systems Reviewed And Found Negative. Constitutional: Negative for: Fever, Chills Cardiovascular: Negative for: Chest Pain Respiratory: Negative for: Shortness of Breath Gastrointestinal: Positive for: Hematochezia. Negative for: Nausea, Vomiting, Abdominal Pain Musculoskeletal: Negative for: Back Pain Skin: Negative for: Rash Neurological: Positive for: Dizziness. Negative for: Weakness, Numbness, Headache Physical Exam - Physical Exam Appears: Non-toxic, No Acute Distress Skin: Warm, Dry, No Rash Head: Atraumatic, Normacephalic Eye(s): bilateral: Normal Inspection, PERRL, EOMI Nose: Normal Oral Mucosa: Moist Lips: Normal Appearing Neck: Normal ROM Cardiovascular: Rhythm Regular, No Murmur Respiratory: Normal Breath Sounds, No Accessory Muscle Use Gastrointestinal/Abdominal: Soft, No Tenderness Extremity: Normal ROM Neurological/Psych: Oriented x3, Normal Speech ED Course And Treatment - Laboratory Results Result Diagrams: 06/09/17 16:59 06/09/17 16:59 Interpretation Of Abnormal: GUIAC FROM CLINIC OFFICE MANAGER NEG ECG: Interpreted By Me ECG Rhythm: Sinus Rhythm ECG Interpretation: Normal Rate From EC O2 Sat by Pulse Oximetry: 98 (ON RA) Pulse Ox Interpretation: Normal Reevaluation Time: 18:26 Reassessment Condition: Improved (NO RECUR SX SINCE INITIAL EVAL. GUIAC NEG. VSS ASYMPT ADVISED FU CLINIC.) Disposition Counseled Patient/Family Regarding: Studies Performed, Diagnosis, Need For Followup - Disposition Referrals: [facility] [Outside] [facility] [Outside] Disposition: HOME/ ROUTINE Disposition Time: 18:27 Condition: GOOD Instructions: Dizziness (ED) Forms: [employer] (Ecuadorean) Print Language: TELUGU - Clinical Impression Clinical Impression: Dizziness - Scribe Statement The provider has reviewed the documentation as recorded by the Scribe (Stephanie Tarango) All medical record entries made by the Scribe were at my direction and personally dictated by me. I have reviewed the chart and agree that the record accurately reflects my personal performance of the history, physical exam, medical decision making, and the department course for this patient. I have also personally directed, reviewed, and agree with the discharge instructions and disposition.
--- NOTE | 2017-06-09 16:27 | C.PDOC ---
History Of Present Illness 52-year-old female, presents to the emergency department Time Seen by Provider: 06/09/17 15:36 Chief Complaint (Nursing): GI Problem Past Medical History Vital Signs: Last Vital Signs Temp 98.4 F 06/09/17 15:29 Pulse 60 06/09/17 15:29 Resp 18 06/09/17 15:29 BP 116/79 06/09/17 15:29 Pulse Ox 98 06/09/17 15:29 - Medical History PMH: HTN Surgical History: Coronary Stent (unknown), Family History: States: Unknown Family Hx - Social History Hx Alcohol Use: No Hx Substance Use: No - Immunization History Hx Tetanus Toxoid Vaccination: No Hx Influenza Vaccination: No Hx Pneumococcal Vaccination: Yes ED Course And Treatment O2 Sat by Pulse Oximetry: 98 Disposition - Disposition - Scribe Statement The provider has reviewed the documentation as recorded by the Scribe (Stephanie Tarango) All medical record entries made by the Scribe were at my direction and personally dictated by me. I have reviewed the chart and agree that the record accurately reflects my personal performance of the history, physical exam, medical decision making, and the department course for this patient. I have also personally directed, reviewed, and agree with the discharge instructions and disposition.
[2017-06-09 17:02] LABS: BASO # 0.1 K/uL (0.0-0.2); BASO % 1.4 % (0.0-2.0); EOS # 0.2 K/uL (0.0-0.7); EOS % 3.9 % (0.0-4.0); HEMOGLOBIN 12.4 g/dL (11.0-16.0); LYMPH # 2.5 K/uL (1.0-4.3); MEAN CELL VOLUME 85.9 fL (81.0-99.0); MEAN CORPUSCULAR HEMOGLOBIN 30.2 pg (27.0-31.0); MEAN CORPUSCULAR HGB CONC 35.2 g/dL (33.0-37.0); MONO # 0.4 K/uL (0.0-0.8); MONO % 6.2 % (0.0-10.0); NEUT # 2.8 K/uL (1.8-7.0); NEUT % 46.5 % (50.0-75.0); NRBC % 0.1 % (0.0-2.0); RBC 4.11 Mil/uL (3.80-5.20); RED CELL DISTRIBUTION WIDTH 13.7 % (11.5-14.5); WHITE BLOOD COUNT 5.9 K/uL (4.8-10.8)
[2017-06-09 17:18] LABS: BLOOD UREA NITROGEN 15 mg/dL (7-17); CALCIUM 8.4 mg/dl (8.6-10.4); GFR AFRICAN-AMERICAN > 60; GFR NON-AFRICAN AMERICAN > 60
[2017-06-09 19:25] VITALS: BP 100/66; PULSE 80; RESP 16; TEMP 98.6
== END 2017-06-09 18:40 | disposition home or self-care (01) ==
LOC: C.ER 15:26
DX: R42 Dizziness and giddiness (principal)

== ENCOUNTER 2017-11-16 12:27 | Emergency (ER) | payer OTHER ==
[2017-11-16] MEDS ORDERED: Sodium Chloride 0.9% 1,000 ML IV ONE (13:13)
--- NOTE | 2017-11-16 13:17 | C.PDOC ---
History Of Present Illness 52 year old female presents to the ED for evaluation of bilateral flank pain and suprapubic abdominal pain which began 3 days ago. Patient reports decreased urination and burning sensation when she urinates. Patient also reports nausea and states she had a fever last night. She has been taking homeopathic UTI medication with minimal relief. Patient denies vomiting, diarrhea or prior history of kidney stones. Time Seen by Provider: 11/16/17 12:58 Chief Complaint (Nursing): Back Pain History Per: Patient History/Exam Limitations: no limitations Onset/Duration Of Symptoms: Days (3) Current Symptoms Are (Timing): Still Present Quality Of Discomfort: Burning, "Pain" Previous Symptoms: Back Pain Additional History Per: Patient Past Medical History Reviewed: Historical Data, Nursing Documentation, Vital Signs Vital Signs: Last Vital Signs Temp 99 F 11/16/17 12:42 Pulse 73 11/16/17 12:42 Resp 18 11/16/17 12:42 BP 112/78 11/16/17 12:42 Pulse Ox 99 11/16/17 13:25 - Medical History PMH: HTN Surgical History: Coronary Stent (unknown), Family History: States: Unknown Family Hx - Social History Hx Alcohol Use: No Hx Substance Use: No - Immunization History Hx Tetanus Toxoid Vaccination: No Hx Influenza Vaccination: No Hx Pneumococcal Vaccination: Yes Review Of Systems Constitutional: Positive for: Fever Gastrointestinal: Positive for: Nausea, Abdominal Pain (suprapubic ). Negative for: Vomiting, Diarrhea Genitourinary: Positive for: Other (burning upon urination ) Physical Exam - Physical Exam Appears: Non-toxic, No Acute Distress Skin: Normal Color, Warm, Dry Head: Atraumatic, Normacephalic Eye(s): bilateral: Normal Inspection Oral Mucosa: Moist Neck: Supple Chest: Symmetrical, No Tenderness Cardiovascular: Rhythm Regular, No Murmur Respiratory: Normal Breath Sounds, No Rales, No Rhonchi, No Wheezing Gastrointestinal/Abdominal: Soft, Tenderness (suprapubic ), No Guarding, No Rebound Back: Other (bilateral flank tenderness ) Extremity: Normal ROM, Capillary Refill (less than 2 seconds ) Neurological/Psych: Oriented x3, Normal Speech, Normal Cognition ED Course And Treatment - Laboratory Results Result Diagrams: 11/16/17 13:24 11/16/17 13:24 O2 Sat by Pulse Oximetry: 99 (on RA) Pulse Ox Interpretation: Normal Medical Decision Making Medical Decision Making: Assessment: bilateral flank and suprapubic abdominal pain Plan: * bloodwork * urinalysis * CT A/P * Zofran IVP * IV Fluids * reassess and disposition Progress: Bloodwork, urinalysis, CT A/P ordered and reviewed. Zofran IVP and IV Fluids administered. Disposition Counseled Patient/Family Regarding: Studies Performed, Diagnosis, Need For Followup, Rx Given - Disposition Referrals: [facility] at [facility] [Outside] Disposition: HOME/ ROUTINE Disposition Time: 14:20 Condition: STABLE Additional Instructions: follow up with medical clinic or your doctor within 2 days call to make an appointment take medications as prescribed return to ER if symptoms worsens or progress Prescriptions: Naproxen [Naprosyn] 500 mg PO BID PRN #16 tab PRN Reason: Pain, Moderate (4-7) Sulfamethoxazole/Trimethoprim [Bactrim DS 800 mg-160 mg] 1 tab PO BID #20 tab Instructions: Urinary Tract Infections in Adults, Flank Pain (DC) Forms: Gen Discharge Inst Bahraini, [employer] (Bahraini) Print Language: JAPANESE - Clinical Impression Clinical Impression: UTI (urinary tract infection), Flank pain - Scribe Statement The provider has reviewed the documentation as recorded by the Scribe (Soheila Shah) Provider Attestation: All medical record entries made by the Scribe were at my direction and personally dictated by me. I have reviewed the chart and agree that the record accurately reflects my personal performance of the history, physical exam, medical decision making, and the department course for this patient. I have also personally directed, reviewed, and agree with the discharge instructions and disposition.
[2017-11-16 13:30] LABS: BASO # 0.1 K/uL (0.0-0.2); BASO % 0.6 % (0.0-2.0); EOS # 0.2 K/uL (0.0-0.7); EOS % 2.6 % (0.0-4.0); HEMOGLOBIN 13.4 g/dL (11.0-16.0); LYMPH # 2.5 K/uL (1.0-4.3); LYMPH % 29.6 % (20.0-40.0); MEAN CORPUSCULAR HEMOGLOBIN 29.1 pg (27.0-31.0); MEAN CORPUSCULAR HGB CONC 34.3 g/dL (33.0-37.0); MEAN PLATELET VOLUME 6.8 fL (7.2-11.7); MONO # 0.7 K/uL (0.0-0.8); NEUT # 5.1 K/uL (1.8-7.0); NEUT % 59.2 % (50.0-75.0); NRBC % 0.1 % (0.0-2.0); RBC 4.61 Mil/uL (3.80-5.20); RED CELL DISTRIBUTION WIDTH 13.5 % (11.5-14.5); WHITE BLOOD COUNT 8.6 K/uL (4.8-10.8)
[2017-11-16 13:42] LABS: ALB/GLOB RATIO 1.2 (1.0-2.1); ALBUMIN 4.5 g/dL (3.5-5.0); ALT/SGPT 31 U/L (9-52); AST/SGOT 27 U/L (14-36); BLOOD UREA NITROGEN 9 mg/dL (7-17); CALCIUM 9.2 mg/dl (8.6-10.4); GFR AFRICAN-AMERICAN > 60; GFR NON-AFRICAN AMERICAN > 60; LIPASE 132 U/L (23-300)
[2017-11-16 13:56] LABS: SQUAMOUS EPITHIAL 4 /hpf (0-5); URINE BACTERIA RARE (<OCC); URINE BILIRUBIN NEGATIVE (NEGATIVE); URINE BLOOD 2+ (NEGATIVE); URINE CLARITY Hazy (Clear); URINE COLOR Yellow (YELLOW); URINE GLUCOSE (UA) NORMAL (Normal); URINE LEUKOCYTE ESTERASE 1+ Leu/uL (Negative); URINE PROTEIN NEGATIVE (NEGATIVE); URINE UROBILINOGEN NORMAL mg/dL (0.2-1.0)
--- NOTE | 2017-11-16 14:08 | CT ---
PROCEDURE: CT Abdomen and Pelvis without intravenous contrast HISTORY: Abdominal pain COMPARISON: 12/14/2016. TECHNIQUE: CT scan of the abdomen and pelvis was performed without administration of intravenous contrast. Oral contrast was not administered. Coronal and sagittal reformatted images were obtained. Radiation dose: Total exam DLP = 649.68 mGy-cm. This CT exam was performed using one or more of the following dose reduction techniques: Automated exposure control, adjustment of the mA and/or kV according to patient size, and/or use of iterative reconstruction technique. FINDINGS: LOWER THORAX: The visualized lungs are clear. LIVER: Normal in size. No gross lesion or ductal dilatation. GALLBLADDER AND BILE DUCTS: No calcified gallstones. PANCREAS: Normal in size. No gross lesion or ductal dilatation. SPLEEN: Normal in size. ADRENALS: No discrete nodules. KIDNEYS AND URETERS: Normal in size without nephrolithiasis. No hydronephrosis. VASCULATURE: No aortic aneurysm. BOWEL: The small bowel loops are normal in caliber. The colon is unremarkable. No bowel dilatation or mural thickening. APPENDIX: No inflammatory changes in the right lower quadrant. Normal appendix. PERITONEUM: No free fluid. No free air. LYMPH NODES: No enlarged lymph nodes. BLADDER: The urinary bladder is partially distended. There is apparent mild mural thickening of the urinary bladder wall. REPRODUCTIVE: The uterus is normal in size. BONES: No acute fracture. Within normal limits for the patient's age. OTHER FINDINGS: None. IMPRESSION: No acute abdominal or pelvic abnormality. Specifically, no evidence for acute appendicitis or pancreatitis. Apparent mild mural thickening of the urinary bladder wall is nonspecific and could be related to underdistention however acute cystitis cannot be entirely excluded. Please correlate with urine analysis.
[2017-11-16] MEDS ORDERED: Tmp-Smz 800 mg-160 mg DS Tab PO STA (14:18)
[2017-11-16] MEDS ORDERED: Tmp-Smz 800 mg-160 mg DS Tab ONE (14:37)
[2017-11-16 14:45] VITALS: BP 116/72; PULSE 62; RESP 20; TEMP 98.8; O2SAT 100
== END 2017-11-16 14:45 | disposition home or self-care (01) ==
LOC: C.ER 12:27
DX: N39.0 Urinary tract infection, site not specified (principal); R10.9 Unspecified abdominal pain; I10 Essential (primary) hypertension
CPT/HCPCS: 74176; 80053; 81001; 83690; 85025; 87086; 87181; 96374; 99284; J2405; J7030

== ENCOUNTER 2018-04-02 15:10 | Observation (INO) | payer OTHER ==
[2018-04-02] MEDS ORDERED: Aspirin 325 mg EC Tablets PO STA (15:40)
[2018-04-02] MEDS ORDERED: Sodium Chloride 0.9% 1,000 ML IV ONE (15:40)
[2018-04-02 16:03] LABS: BASO % 0.6 % (0.0-2.0); EOS # 0.2 K/uL (0.0-0.7); HEMOGLOBIN 12.9 g/dL (11.0-16.0); LYMPH # 2.1 K/uL (1.0-4.3); LYMPH % 35.8 % (20.0-40.0); MEAN CELL VOLUME 85.4 fL (81.0-99.0); MEAN CORPUSCULAR HEMOGLOBIN 29.1 pg (27.0-31.0); MEAN CORPUSCULAR HGB CONC 34.1 g/dL (33.0-37.0); MONO # 0.5 K/uL (0.0-0.8); MONO % 8.1 % (0.0-10.0); NEUT % 51.5 % (50.0-75.0); RBC 4.43 Mil/uL (3.80-5.20); RED CELL DISTRIBUTION WIDTH 13.7 % (11.5-14.5); WHITE BLOOD COUNT 5.9 K/uL (4.8-10.8)
[2018-04-02 16:13] LABS: INR 1.1; PROTHROMBIN TIME 12.4 SECONDS (9.7-12.2)
--- NOTE | 2018-04-02 16:13 | RAD ---
HISTORY: chest pain COMPARISON: Chest x-ray performed 08/16/17 TECHNIQUE: Chest PA and lateral FINDINGS: LUNGS: No focal consolidation. Please note that chest x-ray has limited sensitivity for the detection of pulmonary masses. PLEURA: No significant pleural effusion identified. No definite pneumothorax . CARDIOVASCULAR: Heart size appears within normal limits. No atherosclerotic calcification present. OSSEOUS STRUCTURES: Degenerative changes of the spine. VISUALIZED UPPER ABDOMEN: Unremarkable. OTHER FINDINGS: None. IMPRESSION: No focal consolidation, significant pleural effusion, or definite pneumothorax identified.
[2018-04-02] MEDS ORDERED: Sodium Chloride 0.9% 1,000 ML ONE (16:19)
[2018-04-02] MEDS ORDERED: Aspirin 325 mg EC Tablets PO ONE (16:19)
--- NOTE | 2018-04-02 16:29 | CT ---
Date of service: 04/02/2018 PROCEDURE: CT HEAD WITHOUT CONTRAST. HISTORY: headache COMPARISON: Noncontrast head CT performed 08/16/17 TECHNIQUE: Axial computed tomography images were obtained through the head/brain without intravenous contrast. Radiation dose: Total exam DLP = 1029.05 mGy-cm. This CT exam was performed using one or more of the following dose reduction techniques: Automated exposure control, adjustment of the mA and/or kV according to patient size, and/or use of iterative reconstruction technique. FINDINGS: HEMORRHAGE: No intracranial hemorrhage. BRAIN: No mass effect or edema. Mild scattered white matter hypodensities, which are nonspecific, but often seen with chronic microvascular ischemic disease. Please note that MRI with diffusion imaging is more sensitive in the detection of acute ischemic event. VENTRICLES: No hydrocephalus. CALVARIUM: Unremarkable. PARANASAL SINUSES: Unremarkable as visualized. No significant inflammatory changes. MASTOID AIR CELLS: Unremarkable as visualized. No inflammatory changes. OTHER FINDINGS: None. IMPRESSION: Mild scattered nonspecific white matter changes.
[2018-04-02 16:31] LABS: ALB/GLOB RATIO 1.2 (1.0-2.1); ALBUMIN 4.1 g/dL (3.5-5.0); ALT/SGPT 50 U/L (9-52); AST/SGOT 61 U/L (14-36); BLOOD UREA NITROGEN 11 mg/dL (7-17); CALCIUM 8.8 mg/dl (8.6-10.4); GFR NON-AFRICAN AMERICAN > 60
[2018-04-02 16:36] LABS: SQUAMOUS EPITHIAL 8 /hpf (0-5); URINE BACTERIA OCC (<OCC); URINE BILIRUBIN NEGATIVE (NEGATIVE); URINE BLOOD 1+ (NEGATIVE); URINE CLARITY Clear (Clear); URINE COLOR Yellow (YELLOW); URINE GLUCOSE (UA) NORMAL (Normal); URINE LEUKOCYTE ESTERASE NEG Leu/uL (Negative); URINE PROTEIN NEGATIVE (NEGATIVE)
--- NOTE | 2018-04-02 16:36 | C.PDOC ---
History Of Present Illness 52 yo female w/PMhx of HTN, NIDDM, HLD, [place] sent from clinic for further evaluation of severe headache gradually developed for past week. Pt describes headache as diffuse, more over occipital scalp associated with light sensitivity. Pt sts, was taking Aspirin at home for headache without improvement. Pt also reports, since yesterday developed left sided "squeezing" chest pain associated with B/L arms weakness. Otherwise, pt denies fever, chills, recent illness, visual changes, focal deficits, neck pain, SOB, dyspnea, palpitation, diaphoresis, abd. pain, V/D, UTI sx. Ambulatory in ED with stable agit, not in any apparent distress. Time Seen by Provider: 04/02/18 15:28 Chief Complaint (Nursing): Chest Pain History Per: Patient Past Medical History Reviewed: Historical Data, Nursing Documentation, Vital Signs Vital Signs: Last Vital Signs Temp 98.8 F 04/02/18 15:12 Pulse 66 04/02/18 15:12 Resp 20 04/02/18 15:12 BP 127/81 04/02/18 15:12 Pulse Ox 99 04/02/18 15:40 - Medical History PMH: CAD, Diabetes, HTN, Hypercholesterolemia, Hyperlipidemia Surgical History: Coronary Stent (unknown), Family History: States: Unknown Family Hx - Social History Hx Alcohol Use: No Hx Substance Use: No - Immunization History Hx Tetanus Toxoid Vaccination: No Hx Influenza Vaccination: No Hx Pneumococcal Vaccination: Yes Review Of Systems Except As Marked, All Systems Reviewed And Found Negative. Constitutional: Negative for: Fever, Chills Eyes: Negative for: Vision Change ENT: Negative for: Ear Discharge, Nose Discharge, Nose Congestion, Throat Pain Cardiovascular: Positive for: Chest Pain. Negative for: Palpitations, Orthopnea, Paroxysmal Noc. Dyspnea, Edema, Light Headedness Respiratory: Negative for: Cough, Shortness of Breath, Wheezing Gastrointestinal: Negative for: Nausea, Vomiting, Abdominal Pain, Diarrhea Genitourinary: Negative for: Dysuria, Incontinence Musculoskeletal: Negative for: Neck Pain, Back Pain Skin: Negative for: Rash Neurological: Positive for: Headache. Negative for: Weakness, Numbness, Altered Mental Status, Dizziness Physical Exam - Physical Exam Appears: Well, Non-toxic, No Acute Distress Skin: Normal Color, Warm, Dry, No Rash Head: Atraumatic, Normacephalic Eye(s): bilateral: PERRL, EOMI Ear(s): Bilateral: Normal Nose: No Flaring, No Discharge Oral Mucosa: Moist, No Drooling Tongue: Normal Appearing Throat: No Drooling Neck: Trachea Midline, Supple Chest: No Deformity, No Tenderness Cardiovascular: Rhythm Regular, No Murmur, No JVD, Other ((-) carotid bruits B/L) Respiratory: No Decreased Breath Sounds, No Accessory Muscle Use, No Stridor, No Wheezing Gastrointestinal/Abdominal: Soft, No Tenderness, No Distention, No Guarding, No Rebound Back: No CVA Tenderness Extremity: Normal ROM, No Tenderness, No Pedal Edema, No Calf Tenderness, No Swelling Neurological/Psych: Oriented x3, Normal Speech, Normal Motor, Normal Sensation, Normal Reflexes ED Course And Treatment - Laboratory Results Result Diagrams: 04/02/18 15:55 04/02/18 15:55 Lab Interpretation: No Acute Changes ECG: Interpreted By Me, Viewed By Me ECG Rhythm: Sinus Rhythm Interpretation Of ECG: SR@64/min, NAD, no acute T wave or ST-T changes O2 Sat by Pulse Oximetry: 99 Pulse Ox Interpretation: Normal - Radiology CXR: Interpreted by Me, Viewed By Me, Read By Radiologist CXR Interpretation: Yes: No Acute Disease - Other Rad CXR X-Ray: Interpreted by Me, Viewed By Me, Read By Radiologist Interpretation: FINDINGS: LUNGS: No focal consolidation. Please note that chest x-ray has limited sensitivity for the detection of pulmonary masses. PLEURA: No significant pleural effusion identified. No definite pneumothorax . CARDIOVASCULAR: Heart size appears within normal limits. No atherosclerotic calcification present. OSSEOUS STRUCTURES: Degenerative changes of the spine. VISUALIZED UPPER ABDOMEN: Unremarkable. OTHER FINDINGS: None. IMPRESSION: No focal consolidation, significant pleural effusion, or definite pneumothorax identified. - CT Scan/US CT head w/o contrast Other Rad Studies (CT/US): Radiology Report Reviewed CT/US Interpretation: Creator : Brissa Gamino. Dictator : Kait Lancaster MD. Past[employer]ries Professor : Hourly Caregiver : Kait Lancaster MD. Approver2 : Report Date : 04/02/2018 16:21:51. My Comment : . Date of service: 04/02/2018. PROCEDURE: CT HEAD WITHOUT CONTRAST. HISTORY: headache. COMPARISON: Noncontrast head CT performed 08/16/17. TECHNIQUE: Axial computed tomography images were obtained through the head/brain without intravenous contrast. Radiation dose: Total exam DLP = 1029.05 mGy-cm. This CT exam was performed using one or more of the following dose reduction techniques: Automated exposure control, adjustment of the mA and/or kV according to patient size, and/or use of iterative reconstruction technique. FINDINGS: HEMORRHAGE: No intracranial hemorrhage. BRAIN: No mass effect or edema. Mild scattered white matter hypodensities, which are nonspecific, but often seen with chronic microvascular ischemic disease. Please note that MRI with diffusion imaging is more sensitive in the detection of acute ischemic event. VENTRICLES: No hydrocephalus. CALVARIUM: Unremarkable. PARANASAL SINUSES: Unremarkable as visualized. No significant inflammatory changes. MASTOID AIR CELLS: Unremarkable as visualized. No inflammatory changes. OTHER FINDINGS: None. IMPRESSION: Mild scattered nonspecific white matter changes. Progress Note: Case discussed, results review with Hospitalist and admission arranged with Dx: Chest pain r/o ACS, Severe headache, hx of CVA . results review and [facility], agrees with plan. Disposition - Disposition Disposition: HOSPITALIZED Disposition Time: 16:55 Condition: STABLE Forms: [facility] (Chinese) - Clinical Impression Clinical Impression: Chest pain, Headache, Cerebral microvascular disease
[2018-04-02 16:37] LABS: B-TYPE NATRIURETIC PEPTIDE 36.2 pg/mL (0-900)
[2018-04-02 16:57] LABS: BARBITURATES, UR NEGATIVE (NEGATIVE); BENZODIAZEPINES, UR NEGATIVE (NEGATIVE); OPIATES, UR NEGATIVE (NEGATIVE); PHENCYCLIDINE, UR NEGATIVE (NEGATIVE)
[2018-04-02] MEDS ORDERED: Influenza Vaccine 60 mcg/0.5 mL SYR (4YR UP) IM ONE (19:30)
--- NOTE | 2018-04-02 19:35 | CP.PCM.HP ---
<Fito Levine P - Last Filed: 04/03/18 08:52> Meds Allergies/Adverse Reactions: Allergies Allergy/AdvReac Type Severity Reaction Status Date / Time ampicillin Allergy Verified 04/02/18 15:17 Penicillins Allergy Verified 04/02/18 15:17 Results - Vital Signs Recent Vital Signs: Last Vital Signs Temp 98.5 F 04/03/18 07:00 Pulse 53 L 04/03/18 07:45 Resp 20 04/03/18 07:00 BP 128/80 04/03/18 07:00 Pulse Ox 97 04/03/18 08:36 - Labs Result Diagrams: 04/03/18 04:15 04/03/18 04:15 Labs: Laboratory Results - last 24 hr 04/02/18 04/02/18 04/02/18 15:55 15:55 15:55 WBC 5.9 RBC 4.43 Hgb 12.9 Hct 37.8 MCV 85.4 MCH 29.1 MCHC 34.1 RDW 13.7 Plt Count 293 MPV 7.0 L Neut % (Auto) 51.5 Lymph % (Auto) 35.8 [place] % (Auto) 8.1 Eos % (Auto) 4.0 Baso % (Auto) 0.6 Neut # (Auto) 3.0 Lymph # (Auto) 2.1 [place] # (Auto) 0.5 Eos # (Auto) 0.2 Baso # (Auto) 0.0 ESR 25 H PT 12.4 H INR 1.1 APTT 32 Sodium 139 Potassium 3.8 Chloride 104 Carbon Dioxide 27 Anion Gap 13 BUN 11 Creatinine 0.5 L Est GFR ( Amer) > 60 Est GFR (Non-Af Amer) > 60 Random Glucose 114 H Hemoglobin A1c Calcium 8.8 Magnesium Total Bilirubin 0.3 AST 61 H D ALT 50 Alkaline Phosphatase 50 Total Creatine Kinase 98 CK-MB (Mass) Troponin I < 0.0120 C-React Prot High Sens NT-Pro-B Natriuret Pep 36.2 Total Protein 7.7 Albumin 4.1 Globulin 3.5 Albumin/Globulin Ratio 1.2 Triglycerides Cholesterol LDL Cholesterol Direct HDL Cholesterol TSH 3rd Generation Urine Color Urine Clarity Urine pH Ur Specific [place] Urine Protein Urine Glucose (UA) Urine Ketones Urine Blood Urine Nitrate Urine Bilirubin Urine Urobilinogen Ur Leukocyte Esterase Urine WBC (Auto) Urine RBC (Auto) Ur Squamous Epith Cells Urine Bacteria Urine Opiates Screen Urine Methadone Screen Ur Barbiturates Screen Ur Phencyclidine Scrn Ur Amphetamines Screen U Benzodiazepines Scrn U Oth Cocaine Metabols U Cannabinoids Screen 04/02/18 04/02/18 04/02/18 15:55 16:22 16:36 WBC RBC Hgb Hct MCV MCH MCHC RDW Plt Count MPV Neut % (Auto) Lymph % (Auto) [place] % (Auto) Eos % (Auto) Baso % (Auto) Neut # (Auto) Lymph # (Auto) [place] # (Auto) Eos # (Auto) Baso # (Auto) ESR PT INR APTT Sodium Potassium Chloride Carbon Dioxide Anion Gap BUN Creatinine Est GFR ( Amer) Est GFR (Non-Af Amer) Random Glucose Hemoglobin A1c Calcium Magnesium Total Bilirubin AST ALT Alkaline Phosphatase Total Creatine Kinase CK-MB (Mass) Troponin I C-React Prot High Sens 2.11 NT-Pro-B Natriuret Pep Total Protein Albumin Globulin Albumin/Globulin Ratio Triglycerides Cholesterol LDL Cholesterol Direct HDL Cholesterol TSH 3rd Generation Urine Color Yellow Urine Clarity Clear Urine pH 6.0 Ur Specific [place] 1.024 Urine Protein Negative Urine Glucose (UA) Normal Urine Ketones Negative Urine Blood 1+ H Urine Nitrate Negative Urine Bilirubin Negative Urine Urobilinogen 4.0 H Ur Leukocyte Esterase Neg Urine WBC (Auto) 3 Urine RBC (Auto) 12 H Ur Squamous Epith Cells 8 H Urine Bacteria Occ H Urine Opiates Screen Negative Urine Methadone Screen Negative Ur Barbiturates Screen Negative Ur Phencyclidine Scrn Negative Ur Amphetamines Screen Negative U Benzodiazepines Scrn Negative U Oth Cocaine Metabols Negative U Cannabinoids Screen Negative 04/02/18 04/03/18 04/03/18 22:50 04:15 04:15 WBC RBC Hgb Hct MCV MCH MCHC RDW Plt Count MPV Neut % (Auto) Lymph % (Auto) [place] % (Auto) Eos % (Auto) Baso % (Auto) Neut # (Auto) Lymph # (Auto) [place] # (Auto) Eos # (Auto) Baso # (Auto) ESR PT INR APTT Sodium Potassium Chloride Carbon Dioxide Anion Gap BUN Creatinine Est GFR ( Amer) Est GFR (Non-Af Amer) Random Glucose Hemoglobin A1c Calcium Magnesium 2.2 Total Bilirubin AST ALT Alkaline Phosphatase Total Creatine Kinase 86 CK-MB (Mass) 0.96 Troponin I < 0.0120 C-React Prot High Sens NT-Pro-B Natriuret Pep Total Protein Albumin Globulin Albumin/Globulin Ratio Triglycerides 389 H D Cholesterol 132 LDL Cholesterol Direct 75 HDL Cholesterol 21 L TSH 3rd Generation 4.85 H Urine Color Urine Clarity Urine pH Ur Specific [place] Urine Protein Urine Glucose (UA) Urine Ketones Urine Blood Urine Nitrate Urine Bilirubin Urine Urobilinogen Ur Leukocyte Esterase Urine WBC (Auto) Urine RBC (Auto) Ur Squamous Epith Cells Urine Bacteria Urine Opiates Screen Urine Methadone Screen Ur Barbiturates Screen Ur Phencyclidine Scrn Ur Amphetamines Screen U Benzodiazepines Scrn U Oth Cocaine Metabols U Cannabinoids Screen 04/03/18 04/03/18 04/03/18 04:15 04:15 04:15 WBC 5.6 RBC 3.93 Hgb 11.5 Hct 33.7 L MCV 85.6 MCH 29.1 MCHC 34.0 RDW 13.5 Plt Count 242 MPV 6.7 L Neut % (Auto) 45.2 L Lymph % (Auto) 41.5 H [place] % (Auto) 7.8 Eos % (Auto) 4.8 H Baso % (Auto) 0.7 Neut # (Auto) 2.5 Lymph # (Auto) 2.3 [place] # (Auto) 0.4 Eos # (Auto) 0.3 Baso # (Auto) 0.0 ESR PT INR APTT Sodium 139 Potassium 3.9 Chloride 107 Carbon Dioxide 27 Anion Gap 9 L BUN 14 Creatinine 0.6 L Est GFR ( Amer) > 60 Est GFR (Non-Af Amer) > 60 Random Glucose 118 H Hemoglobin A1c 6.6 H Calcium 8.4 L Magnesium Total Bilirubin 0.2 AST 32 ALT 44 Alkaline Phosphatase 55 Total Creatine Kinase 86 CK-MB (Mass) 1.12 Troponin I < 0.0120 C-React Prot High Sens NT-Pro-B Natriuret Pep Total Protein 6.5 Albumin 3.5 Globulin 3.0 Albumin/Globulin Ratio 1.2 Triglycerides Cholesterol LDL Cholesterol Direct HDL Cholesterol TSH 3rd Generation Urine Color Urine Clarity Urine pH Ur Specific [place] Urine Protein Urine Glucose (UA) Urine Ketones Urine Blood Urine Nitrate Urine Bilirubin Urine Urobilinogen Ur Leukocyte Esterase Urine WBC (Auto) Urine RBC (Auto) Ur Squamous Epith Cells Urine Bacteria Urine Opiates Screen Urine Methadone Screen Ur Barbiturates Screen Ur Phencyclidine Scrn Ur Amphetamines Screen U Benzodiazepines Scrn U Oth Cocaine Metabols U Cannabinoids Screen Attending/Attestation - Attestation I have personally seen and examined this patient.: Yes I have fully participated in the care of the patient.: Yes I have reviewed all pertinent clinical information: Yes Notes (Text): 04/03/18 08:52 * Clinically occipital neuralgia, ordered cervical MRI for DD, imporvement with toradol and valium, but may need occipital nerve block, consulted neurology. * Atypical chest pain clinically costo-condritis. Plan Serial enzymes MRI, nerology consult for block supportive care See orders for detail. <Tomasa Andrews P - Last Filed: 04/03/18 09:36> History of Present Illness - History of Present Illness History of Present Illness: Patient is a 52 year old female with past medical history HTN and CO 7 years ago in [facility] who presents to ED with complaint of headache that began one week ago and gradually worsened to a 10/10 pain 3 days ago. Pain starts in the occiput and radiates down to the neck and behind R eye. Pain is described as pressure and needles in the R eye. Patient states Aspirin would initially improve the pain, but it has not provided any relief in the last 3 days. Pain is associated with intermittent blurred vision that is worse with reading. Patient also complains of intermittent L sided chest pain that began yesterday and worsened at night. Pain is described as pressure. Pain does not radiate. Aspirin provided no relief. Also complains of nausea, shortness of breath, diaphoresis, generalized weakness and dry cough. Patient denies fever, chills, lightheadedness, abdominal pain, diarrhea, focal weakness, vomiting, recent illness, recent travel, and sick contacts. Patient also reports leg swelling. PMD: [facility] PMHx: HTN, CO Meds: Lisinopril 10mg daily, Coreg 6.25mg PO BID, HCTZ 25mg daily, asa 81mg daily, crestor 10mg daily, Miralax PSHx: x 1, cardiac cath in [facility] 7 years ago- no stents per patient FamHx: mother CO @ age 50, father with heart disease and alcoholism Social: never smoked, denies alcohol use, lives with , does not work Review of Systems: -Gen: No fever, No chills, + headache, No lethargy, + weakness. -HEENT: + dizziness, + blurred vision, No change in hearing, No sore throat, No dysphagia, No nasal congestion, No mucous. -Cardio: + chest pain, No palpitations, No lower extremity edema, No orthopnea. -Resp: + cough, + dyspnea, No hemoptysis, No wheezing, No pain on inspiration. -GI: No abdominal pain, + nausea, No vomiting, No diarrhea, + chronic constipa tion, No hematochezia, No hematemesis. -: No dysuria, No new urinary freq, No incontinence, No hematuria, No change in urinary stream. -MSK: No back pain, No muscle weakness, No radiating pain. -Skin: No itching, No rash, No lesions. -Neuro: No confusion, No numbness, No tingling, No focal weakness, No radicular pain, No syncope. -Psych: No anxiety, No depression, No H/I, No S/I, No hallucinations. Present on Admission - Present on Admission Any Indicators Present on Admission: No Past Patient History - Infectious Disease Hx of Infectious Diseases: None - Past Medical History & Family History Past Medical History?: Yes - Past Social History Smoking Status: Never Smoked - CARDIAC Hx Hypercholesterolemia: Yes Hx Hypertension: Yes - ENDOCRINE/METABOLIC Other/Comment: IGT - MUSCULOSKELETAL/RHEUMATOLOGICAL Hx Falls: No - GASTROINTESTINAL Hx Gastrointestinal Disorders: Yes Hx Constipation: Yes - PSYCHIATRIC Hx Substance Use: No - SURGICAL HISTORY Hx Coronary Stent: Yes (unknown) - ANESTHESIA Hx Anesthesia: Yes Hx Anesthesia Reactions: No Results - Vital Signs Recent Vital Signs: Last Vital Signs Temp 98.8 F 04/02/18 15:12 Pulse 65 04/02/18 18:14 Resp 16 04/02/18 18:14 BP 105/62 04/02/18 18:14 Pulse Ox 100 04/02/18 18:14 - Labs Result Diagrams: 04/03/18 04:15 04/03/18 04:15 Labs: Laboratory Results - last 24 hr 04/02/18 04/02/18 04/02/18 15:55 15:55 15:55 WBC 5.9 RBC 4.43 Hgb 12.9 Hct 37.8 MCV 85.4 MCH 29.1 MCHC 34.1 RDW 13.7 Plt Count 293 MPV 7.0 L Neut % (Auto) 51.5 Lymph % (Auto) 35.8 [place] % (Auto) 8.1 Eos % (Auto) 4.0 Baso % (Auto) 0.6 Neut # (Auto) 3.0 Lymph # (Auto) 2.1 [place] # (Auto) 0.5 Eos # (Auto) 0.2 Baso # (Auto) 0.0 ESR 25 H PT 12.4 H INR 1.1 APTT 32 Sodium 139 Potassium 3.8 Chloride 104 Carbon Dioxide 27 Anion Gap 13 BUN 11 Creatinine 0.5 L Est GFR ( Amer) > 60 Est GFR (Non-Af Amer) > 60 Random Glucose 114 H Calcium 8.8 Total Bilirubin 0.3 AST 61 H D ALT 50 Alkaline Phosphatase 50 Total Creatine Kinase 98 Troponin I < 0.0120 C-React Prot High Sens NT-Pro-B Natriuret Pep 36.2 Total Protein 7.7 Albumin 4.1 Globulin 3.5 Albumin/Globulin Ratio 1.2 Urine Color Urine Clarity Urine pH Ur Specific [place] Urine Protein Urine Glucose (UA) Urine Ketones Urine Blood Urine Nitrate Urine Bilirubin Urine Urobilinogen Ur Leukocyte Esterase Urine WBC (Auto) Urine RBC (Auto) Ur Squamous Epith Cells Urine Bacteria Urine Opiates Screen Urine Methadone Screen Ur Barbiturates Screen Ur Phencyclidine Scrn Ur Amphetamines Screen U Benzodiazepines Scrn U Oth Cocaine Metabols U Cannabinoids Screen 04/02/18 04/02/18 04/02/18 15:55 16:22 16:36 WBC RBC Hgb Hct MCV MCH MCHC RDW Plt Count MPV Neut % (Auto) Lymph % (Auto) [place] % (Auto) Eos % (Auto) Baso % (Auto) Neut # (Auto) Lymph # (Auto) [place] # (Auto) Eos # (Auto) Baso # (Auto) ESR PT INR APTT Sodium Potassium Chloride Carbon Dioxide Anion Gap BUN Creatinine Est GFR ( Amer) Est GFR (Non-Af Amer) Random Glucose Calcium Total Bilirubin AST ALT Alkaline Phosphatase Total Creatine Kinase Troponin I C-React Prot High Sens 2.11 NT-Pro-B Natriuret Pep Total Protein Albumin Globulin Albumin/Globulin Ratio Urine Color Yellow Urine Clarity Clear Urine pH 6.0 Ur Specific [place] 1.024 Urine Protein Negative Urine Glucose (UA) Normal Urine Ketones Negative Urine Blood 1+ H Urine Nitrate Negative Urine Bilirubin Negative Urine Urobilinogen 4.0 H Ur Leukocyte Esterase Neg Urine WBC (Auto) 3 Urine RBC (Auto) 12 H Ur Squamous Epith Cells 8 H Urine Bacteria Occ H Urine Opiates Screen Negative Urine Methadone Screen Negative Ur Barbiturates Screen Negative Ur Phencyclidine Scrn Negative Ur Amphetamines Screen Negative U Benzodiazepines Scrn Negative U Oth Cocaine Metabols Negative U Cannabinoids Screen Negative Assessment & Plan - Assessment and Plan (Free Text) Plan: 52 year old female with PMHx of HTN and CO 7 years ago presents to ED with headache and chest pain. Headache, likely secondary to occipital neuralgia -ESR 25 -f/u cervical MRI -Neurology consulted, help appreciated. -Valium 2mg PO Q6H PRN muscle spasm -Toradol 15mg IV Q6H PRN moderate pain -Tylenol 650mg PO Q6H PRN for mild pain Chest pain rule out ACS -Hx CO 7 years ago -EKG: Sinus bradycardia at 53bpm, no ST changes -Troponin negative x1, f/u serial ROMIs -f/u lipid panel, TSH, HgbA1c Prophylaxis -Heparin 5000u Q8H -SCDs <Quiñonez,Peter H - Last Filed: 04/04/18 07:29> Results - Vital Signs Recent Vital Signs: Last Vital Signs Temp 98.1 F 04/04/18 05:00 Pulse 61 04/04/18 05:00 Resp 20 04/04/18 05:00 BP 95/52 L 04/04/18 05:00 Pulse Ox 97 04/04/18 05:00 - Labs Result Diagrams: 04/04/18 06:46 04/03/18 04:15 Labs: Laboratory Results - last 24 hr 04/03/18 04/04/18 04/04/18 12:00 05:59 06:46 WBC 10.1 D RBC 4.20 Hgb 12.5 Hct 36.1 MCV 85.9 MCH 29.8 MCHC 34.7 RDW 13.7 Plt Count 289 MPV 7.1 L Neut % (Auto) 86.9 H Lymph % (Auto) 10.5 L [place] % (Auto) 2.3 Eos % (Auto) 0.0 Baso % (Auto) 0.3 Neut # (Auto) 8.7 H Lymph # (Auto) 1.1 [place] # (Auto) 0.2 Eos # (Auto) 0.0 Baso # (Auto) 0.0 POC Glucose (mg/dL) 209 H Total Creatine Kinase 84 CK-MB (Mass) 0.86 Troponin I < 0.0120 Attending/Attestation - Attestation I have personally seen and examined this patient.: Yes I have fully participated in the care of the patient.: Yes I have reviewed all pertinent clinical information: Yes Notes (Text): 04/04/18 07:26 Medical attending: Patient was seen and examined by me with the medical residents. The patient was not in any acute distress - but she has these ongoing headaches and talking to her it sounds as if she suffers from chronic migraines. The overnight admitting team has ordered muscle relaxant medications as well as toradol and decadron The patient on exam was able to move all extremities and also was able to stand, walk, and while she was standing able balance herself on each foot on exam The patient was pending an MRI results at this time Henok Quiñonez
[2018-04-02 23:40] LABS: CK-MB 0.96 ng/mL (0.0-3.38)
[2018-04-03 04:20] LABS: BASO % 0.7 % (0.0-2.0); EOS # 0.3 K/uL (0.0-0.7); EOS % 4.8 % (0.0-4.0); HEMOGLOBIN 11.5 g/dL (11.0-16.0); LYMPH # 2.3 K/uL (1.0-4.3); LYMPH % 41.5 % (20.0-40.0); MEAN CELL VOLUME 85.6 fL (81.0-99.0); MEAN CORPUSCULAR HEMOGLOBIN 29.1 pg (27.0-31.0); MEAN PLATELET VOLUME 6.7 fL (7.2-11.7); MONO # 0.4 K/uL (0.0-0.8); MONO % 7.8 % (0.0-10.0); NEUT # 2.5 K/uL (1.8-7.0); NEUT % 45.2 % (50.0-75.0); RBC 3.93 Mil/uL (3.80-5.20); RED CELL DISTRIBUTION WIDTH 13.5 % (11.5-14.5); WHITE BLOOD COUNT 5.6 K/uL (4.8-10.8)
[2018-04-03] MEDS ORDERED: diaZEpam 10 mg/2 ml Inj IVP ONE (04:23)
[2018-04-03 04:43] LABS: ALB/GLOB RATIO 1.2 (1.0-2.1); ALBUMIN 3.5 g/dL (3.5-5.0); ALT/SGPT 44 U/L (9-52); AST/SGOT 32 U/L (14-36); BLOOD UREA NITROGEN 14 mg/dL (7-17); CALCIUM 8.4 mg/dl (8.6-10.4); GFR NON-AFRICAN AMERICAN > 60
[2018-04-03 04:46] LABS: CK-MB 1.12 ng/mL (0.0-3.38)
--- NOTE | 2018-04-03 09:10 | CP.PCM.CON ---
<Ida Ross - Last Filed: 04/03/18 18:17> History of Present Illness - History of Present Illness History of Present Illness: Neurology Consult Note This is a 52 year old female with PMHx of Hypertension, Hyperlipidemia, New onset Type 2 Diabetes, Myocardial Infarction 7 years ago, and Chronic Intractable Headaches who was referred to our service by Dr. Levine, after the patient presented to the ED for headache. Patient reports she suffers from head aches frequently, but these are relieved with OTC medications. She reported having a headache 3 days prior to admission that started from the base of her neck (right sided) and radiated towards toward her frontal region, involving her right orbit. She admitted to associated blurry vision bilaterally right worse than left, lacrimation, eye pain, and redness. She reports she reads a lot and feels as if she has to strain her eyes to read and to watch TV. She has never seen an shrimp packer. Patient came to the ED due to chest pain that started the night prior to admission. PMHx: As noted above PSHx: x 1, cardiac cath in [facility] 7 years ago- no stents per patient All: NKDA SHx: never smoked, denies alcohol use, lives with , does not work FHx: Unremarkable Review of Systems - Constitutional Constitutional: absent: Chills, Fever, Headache, Night Sweats - EENT Eyes: Blurred Vision, Diplopia, Photophobia. absent: Floaters Ears: absent: Tinnitus Nose/Mouth/Throat: absent: Nasal Congestion, Nasal Discharge, Dry Mouth, Dysphagia - Cardiovascular Cardiovascular: absent: Chest Pain, Chest Pain at Rest, Dyspnea, Dyspnea on Exertion, Edema, Palpitations, Syncope - Respiratory Respiratory: absent: Cough, Dyspnea, Dyspnea on Exertion - Gastrointestinal Gastrointestinal: absent: Abdominal Pain, Constipation, Nausea, Vomiting - Genitourinary Genitourinary: absent: Dysuria, Flank Pain, Urinary Incontinence - Musculoskeletal Musculoskeletal: absent: Numbness, Stiffness - Neurological Neurological: Dizziness, Headaches. absent: Abnormal Gait, Abnormal Hearing, Abnormal Speech, Confusion, Convulsions, Paresthesias, Radicular Pain, Vertigo, Weakness - Psychiatric Psychiatric: absent: Anxiety Past Patient History - Infectious Disease Hx of Infectious Diseases: None - Past Medical History & Family History Past Medical History?: Yes - Past Social History Smoking Status: Never Smoked - CARDIAC Hx Hypercholesterolemia: Yes Hx Hypertension: Yes - ENDOCRINE/METABOLIC Other/Comment: IGT - MUSCULOSKELETAL/RHEUMATOLOGICAL Hx Falls: No - GASTROINTESTINAL Hx Gastrointestinal Disorders: Yes Hx Constipation: Yes - PSYCHIATRIC Hx Substance Use: No - SURGICAL HISTORY Hx Coronary Stent: Yes (unknown) - ANESTHESIA Hx Anesthesia: Yes Hx Anesthesia Reactions: No Meds Allergies/Adverse Reactions: Allergies Allergy/AdvReac Type Severity Reaction Status Date / Time ampicillin Allergy Verified 04/02/18 15:17 Penicillins Allergy Verified 04/02/18 15:17 - Medications Medications: Current Medications Acetaminophen (Tylenol 325mg Tab) 650 mg PO Q6 PRN PRN Reason: Pain, Mild (1-3) Last Admin: 04/02/18 23:26 Dose: 650 mg Aspirin (Aspirin Chewable) 81 mg PO DAILY [facility] Carvedilol (Coreg) 6.25 mg PO BID [facility] Diazepam (Valium) 2 mg PO Q6 PRN PRN Reason: Muscle spasm Heparin Sodium (Porcine) (Heparin) 5,000 units SC Q8 [facility] Last Admin: 04/03/18 05:55 Dose: 5,000 units Hydrochlorothiazide (Hydrodiuril) 25 mg PO DAILY [facility] Influenza Virus Vaccine (Flucelvax Quad [id number] Syr) 60 mcg IM .ONCE ONE Stop: 04/04/18 10:01 Ketorolac Tromethamine (Toradol) 15 mg IVP Q6 [facility] Lisinopril (Zestril) 10 mg PO DAILY [facility] Rosuvastatin Calcium (Crestor) 10 mg PO HS [facility] Last Admin: 04/02/18 23:22 Dose: 10 mg Physical Exam - Constitutional Appears: No Acute Distress - Head Exam Head Exam: NORMAL INSPECTION, NORMOCEPHALIC - Eye Exam Eye Exam: PERRL - ENT Exam ENT Exam: Mucous Membranes Moist - Respiratory Exam Respiratory Exam: Clear to Auscultation Bilateral, NORMAL BREATHING PATTERN - Cardiovascular Exam Cardiovascular Exam: +S1, +S2 - GI/Abdominal Exam GI & Abdominal Exam: Normal Bowel Sounds, Soft. absent: Distended, Tenderness - Rectal Exam Rectal Exam: Deferred - Extremities Exam Extremities exam: Positive for: normal inspection, pedal pulses present. Negative for: pedal edema, tenderness - Back Exam Back exam: muscle spasm, NORMAL INSPECTION Additional comments: TTP right trapezius, right tender point noted around C7/ T1 - Neurological Exam Neurological exam: Alert, CN II-XII Intact, Normal Gait, Oriented x3, Reflexes Normal - Expanded Neurological Exam Expanded Patient oriented to: person, place, time Cerebellar Function: Finger to Nose: Normal Sensory exam: Lower Extremity Pin Prick: Normal, Upper Extremity Light Touch: Normal Neuro motor strength exam: Left Upper Extremity: 5, Right Upper Extremity: 5, Left Lower Extremity: 5, Right Lower Extremity: 5 DTR: Bicep Left: 2+, Bicep Right: 2+, Patellar Left: 2+, Patellar Right: 2+ - Psychiatric Exam Psychiatric exam: Normal Affect, Normal Mood - Skin Skin Exam: Dry, Intact, Normal Color, Warm Results - Vital Signs Recent Vital Signs: Last Vital Signs Temp 98.5 F 04/03/18 07:00 Pulse 53 L 04/03/18 07:45 Resp 20 04/03/18 07:00 BP 128/80 04/03/18 07:00 Pulse Ox 97 04/03/18 08:36 - Labs Result Diagrams: 04/03/18 04:15 04/03/18 04:15 Labs: Laboratory Results - last 24 hr 04/02/18 04/02/18 04/02/18 15:55 15:55 15:55 WBC 5.9 RBC 4.43 Hgb 12.9 Hct 37.8 MCV 85.4 MCH 29.1 MCHC 34.1 RDW 13.7 Plt Count 293 MPV 7.0 L Neut % (Auto) 51.5 Lymph % (Auto) 35.8 [place] % (Auto) 8.1 Eos % (Auto) 4.0 Baso % (Auto) 0.6 Neut # (Auto) 3.0 Lymph # (Auto) 2.1 [place] # (Auto) 0.5 Eos # (Auto) 0.2 Baso # (Auto) 0.0 ESR 25 H PT 12.4 H INR 1.1 APTT 32 Sodium 139 Potassium 3.8 Chloride 104 Carbon Dioxide 27 Anion Gap 13 BUN 11 Creatinine 0.5 L Est GFR ( Amer) > 60 Est GFR (Non-Af Amer) > 60 Random Glucose 114 H Hemoglobin A1c Calcium 8.8 Magnesium Total Bilirubin 0.3 AST 61 H D ALT 50 Alkaline Phosphatase 50 Total Creatine Kinase 98 CK-MB (Mass) Troponin I < 0.0120 C-React Prot High Sens NT-Pro-B Natriuret Pep 36.2 Total Protein 7.7 Albumin 4.1 Globulin 3.5 Albumin/Globulin Ratio 1.2 Triglycerides Cholesterol LDL Cholesterol Direct HDL Cholesterol TSH 3rd Generation Urine Color Urine Clarity Urine pH Ur Specific Tye Urine Protein Urine Glucose (UA) Urine Ketones Urine Blood Urine Nitrate Urine Bilirubin Urine Urobilinogen Ur Leukocyte Esterase Urine WBC (Auto) Urine RBC (Auto) Ur Squamous Epith Cells Urine Bacteria Urine Opiates Screen Urine Methadone Screen Ur Barbiturates Screen Ur Phencyclidine Scrn Ur Amphetamines Screen U Benzodiazepines Scrn U Oth Cocaine Metabols U Cannabinoids Screen 04/02/18 04/02/18 04/02/18 15:55 16:22 16:36 WBC RBC Hgb Hct MCV MCH MCHC RDW Plt Count MPV Neut % (Auto) Lymph % (Auto) [place] % (Auto) Eos % (Auto) Baso % (Auto) Neut # (Auto) Lymph # (Auto) [place] # (Auto) Eos # (Auto) Baso # (Auto) ESR PT INR APTT Sodium Potassium Chloride Carbon Dioxide Anion Gap BUN Creatinine Est GFR ( Amer) Est GFR (Non-Af Amer) Random Glucose Hemoglobin A1c Calcium Magnesium Total Bilirubin AST ALT Alkaline Phosphatase Total Creatine Kinase CK-MB (Mass) Troponin I C-React Prot High Sens 2.11 NT-Pro-B Natriuret Pep Total Protein Albumin Globulin Albumin/Globulin Ratio Triglycerides Cholesterol LDL Cholesterol Direct HDL Cholesterol TSH 3rd Generation Urine Color Yellow Urine Clarity Clear Urine pH 6.0 Ur Specific Tye 1.024 Urine Protein Negative Urine Glucose (UA) Normal Urine Ketones Negative Urine Blood 1+ H Urine Nitrate Negative Urine Bilirubin Negative Urine Urobilinogen 4.0 H Ur Leukocyte Esterase Neg Urine WBC (Auto) 3 Urine RBC (Auto) 12 H Ur Squamous Epith Cells 8 H Urine Bacteria Occ H Urine Opiates Screen Negative Urine Methadone Screen Negative Ur Barbiturates Screen Negative Ur Phencyclidine Scrn Negative Ur Amphetamines Screen Negative U Benzodiazepines Scrn Negative U Oth Cocaine Metabols Negative U Cannabinoids Screen Negative 04/02/18 04/03/18 04/03/18 22:50 04:15 04:15 WBC RBC Hgb Hct MCV MCH MCHC RDW Plt Count MPV Neut % (Auto) Lymph % (Auto) [place] % (Auto) Eos % (Auto) Baso % (Auto) Neut # (Auto) Lymph # (Auto) [place] # (Auto) Eos # (Auto) Baso # (Auto) ESR PT INR APTT Sodium Potassium Chloride Carbon Dioxide Anion Gap BUN Creatinine Est GFR ( Amer) Est GFR (Non-Af Amer) Random Glucose Hemoglobin A1c Calcium Magnesium 2.2 Total Bilirubin AST ALT Alkaline Phosphatase Total Creatine Kinase 86 CK-MB (Mass) 0.96 Troponin I < 0.0120 C-React Prot High Sens NT-Pro-B Natriuret Pep Total Protein Albumin Globulin Albumin/Globulin Ratio Triglycerides 389 H D Cholesterol 132 LDL Cholesterol Direct 75 HDL Cholesterol 21 L TSH 3rd Generation 4.85 H Urine Color Urine Clarity Urine pH Ur Specific Tye Urine Protein Urine Glucose (UA) Urine Ketones Urine Blood Urine Nitrate Urine Bilirubin Urine Urobilinogen Ur Leukocyte Esterase Urine WBC (Auto) Urine RBC (Auto) Ur Squamous Epith Cells Urine Bacteria Urine Opiates Screen Urine Methadone Screen Ur Barbiturates Screen Ur Phencyclidine Scrn Ur Amphetamines Screen U Benzodiazepines Scrn U Oth Cocaine Metabols U Cannabinoids Screen 04/03/18 04/03/18 04/03/18 04:15 04:15 04:15 WBC 5.6 RBC 3.93 Hgb 11.5 Hct 33.7 L MCV 85.6 MCH 29.1 MCHC 34.0 RDW 13.5 Plt Count 242 MPV 6.7 L Neut % (Auto) 45.2 L Lymph % (Auto) 41.5 H [place] % (Auto) 7.8 Eos % (Auto) 4.8 H Baso % (Auto) 0.7 Neut # (Auto) 2.5 Lymph # (Auto) 2.3 [place] # (Auto) 0.4 Eos # (Auto) 0.3 Baso # (Auto) 0.0 ESR PT INR APTT Sodium 139 Potassium 3.9 Chloride 107 Carbon Dioxide 27 Anion Gap 9 L BUN 14 Creatinine 0.6 L Est GFR ( Amer) > 60 Est GFR (Non-Af Amer) > 60 Random Glucose 118 H Hemoglobin A1c 6.6 H Calcium 8.4 L Magnesium Total Bilirubin 0.2 AST 32 ALT 44 Alkaline Phosphatase 55 Total Creatine Kinase 86 CK-MB (Mass) 1.12 Troponin I < 0.0120 C-React Prot High Sens NT-Pro-B Natriuret Pep Total Protein 6.5 Albumin 3.5 Globulin 3.0 Albumin/Globulin Ratio 1.2 Triglycerides Cholesterol LDL Cholesterol Direct HDL Cholesterol TSH 3rd Generation Urine Color Urine Clarity Urine pH Ur Specific Tye Urine Protein Urine Glucose (UA) Urine Ketones Urine Blood Urine Nitrate Urine Bilirubin Urine Urobilinogen Ur Leukocyte Esterase Urine WBC (Auto) Urine RBC (Auto) Ur Squamous Epith Cells Urine Bacteria Urine Opiates Screen Urine Methadone Screen Ur Barbiturates Screen Ur Phencyclidine Scrn Ur Amphetamines Screen U Benzodiazepines Scrn U Oth Cocaine Metabols U Cannabinoids Screen Assessment & Plan - Assessment and Plan (Free Text) Plan: Migraine Imaging: - Head CT without contrast: Mild scattered nonspecific white matter changes. - Cervical MRI: 1. No large disc herniation or severe spinal stenosis. 2. Circumferential bulging at C5-6 abuts the ventral cord surface without deformity causing borderline central stenosis. Moderate degenerative right neural foraminal stenosis identified with none on the left. 3. Limited circumferential disc bulge C6-7 without disc herniation, central canal or neural foraminal stenosis Management: - Given one time dose of decadron, magnesium sulfate 2gm, and depakote 500mg IV - Continue with valium PRN - Tender point noted C7/T1 (right), if migraine does not improve, will administer lidocaine Case discussed with Ida Alvarez DO, PGY2 <Danielito Messer - Last Filed: 04/03/18 18:45> Meds - Medications Medications: Current Medications Acetaminophen (Tylenol 325mg Tab) 650 mg PO Q6 PRN PRN Reason: Pain, Mild (1-3) Last Admin: 04/03/18 14:53 Dose: 650 mg Aspirin (Aspirin Chewable) 81 mg PO DAILY [facility] Last Admin: 04/03/18 10:05 Dose: 81 mg Carvedilol (Coreg) 6.25 mg PO BID [facility] Last Admin: 04/03/18 17:43 Dose: 6.25 mg Diazepam (Valium) 2 mg PO Q6 PRN PRN Reason: Muscle spasm Heparin Sodium (Porcine) (Heparin) 5,000 units SC Q8 [facility] Last Admin: 04/03/18 13:28 Dose: 5,000 units Hydrochlorothiazide (Hydrodiuril) 25 mg PO DAILY [facility] Last Admin: 04/03/18 10:05 Dose: 25 mg Influenza Virus Vaccine (Flucelvax Quad [id number] Syr) 60 mcg IM .ONCE ONE Stop: 04/04/18 10:01 Ketorolac Tromethamine (Toradol) 15 mg IVP Q6 PRN PRN Reason: Pain, moderate (4-7) Lisinopril (Zestril) 10 mg PO DAILY [facility] Last Admin: 04/03/18 10:05 Dose: 10 mg Rosuvastatin Calcium (Crestor) 10 mg PO HS [facility] Last Admin: 04/02/18 23:22 Dose: 10 mg Results - Vital Signs Recent Vital Signs: Last Vital Signs Temp 98.1 F 04/03/18 15:58 Pulse 65 04/03/18 15:58 Resp 18 04/03/18 15:58 BP 111/70 04/03/18 15:58 Pulse Ox 98 04/03/18 15:58 - Labs Result Diagrams: 04/03/18 04:15 04/03/18 04:15 Labs: Laboratory Results - last 24 hr 04/02/18 04/03/18 04/03/18 22:50 04:15 04:15 WBC RBC Hgb Hct MCV MCH MCHC RDW Plt Count MPV Neut % (Auto) Lymph % (Auto) [place] % (Auto) Eos % (Auto) Baso % (Auto) Neut # (Auto) Lymph # (Auto) [place] # (Auto) Eos # (Auto) Baso # (Auto) Sodium Potassium Chloride Carbon Dioxide Anion Gap BUN Creatinine Est GFR ( Amer) Est GFR (Non-Af Amer) Random Glucose Hemoglobin A1c Calcium Magnesium 2.2 Total Bilirubin AST ALT Alkaline Phosphatase Total Creatine Kinase 86 CK-MB (Mass) 0.96 Troponin I < 0.0120 Total Protein Albumin Globulin Albumin/Globulin Ratio Triglycerides 389 H D Cholesterol 132 LDL Cholesterol Direct 75 HDL Cholesterol 21 L TSH 3rd Generation 4.85 H 04/03/18 04/03/18 04/03/18 04:15 04:15 04:15 WBC 5.6 RBC 3.93 Hgb 11.5 Hct 33.7 L MCV 85.6 MCH 29.1 MCHC 34.0 RDW 13.5 Plt Count 242 MPV 6.7 L Neut % (Auto) 45.2 L Lymph % (Auto) 41.5 H [place] % (Auto) 7.8 Eos % (Auto) 4.8 H Baso % (Auto) 0.7 Neut # (Auto) 2.5 Lymph # (Auto) 2.3 [place] # (Auto) 0.4 Eos # (Auto) 0.3 Baso # (Auto) 0.0 Sodium 139 Potassium 3.9 Chloride 107 Carbon Dioxide 27 Anion Gap 9 L BUN 14 Creatinine 0.6 L Est GFR ( Amer) > 60 Est GFR (Non-Af Amer) > 60 Random Glucose 118 H Hemoglobin A1c 6.6 H Calcium 8.4 L Magnesium Total Bilirubin 0.2 AST 32 ALT 44 Alkaline Phosphatase 55 Total Creatine Kinase 86 CK-MB (Mass) 1.12 Troponin I < 0.0120 Total Protein 6.5 Albumin 3.5 Globulin 3.0 Albumin/Globulin Ratio 1.2 Triglycerides Cholesterol LDL Cholesterol Direct HDL Cholesterol TSH 3rd Generation 04/03/18 12:00 WBC RBC Hgb Hct MCV MCH MCHC RDW Plt Count MPV Neut % (Auto) Lymph % (Auto) [place] % (Auto) Eos % (Auto) Baso % (Auto) Neut # (Auto) Lymph # (Auto) [place] # (Auto) Eos # (Auto) Baso # (Auto) Sodium Potassium Chloride Carbon Dioxide Anion Gap BUN Creatinine Est GFR ( Amer) Est GFR (Non-Af Amer) Random Glucose Hemoglobin A1c Calcium Magnesium Total Bilirubin AST ALT Alkaline Phosphatase Total Creatine Kinase 84 CK-MB (Mass) 0.86 Troponin I < 0.0120 Total Protein Albumin Globulin Albumin/Globulin Ratio Triglycerides Cholesterol LDL Cholesterol Direct HDL Cholesterol TSH 3rd Generation Attending/Attestation - Attestation I have personally seen and examined this patient.: Yes I have fully participated in the care of the patient.: Yes I have reviewed all pertinent clinical information: Yes Notes (Text): 04/03/18 18:45 I agree with the assessment and plan. The patient appears to be suffering from migraine headache that is intractable. We will treat this with decadron, depakote and magnesium sulfate. She also has a trigger point, which we may treat with an injection tomorrow, if she is not improved.
--- NOTE | 2018-04-03 12:31 | MRI ---
Date of service: 04/03/2018 PROCEDURE: MR CERVICAL SPINE WITHOUT CONTRAST HISTORY: occipital neuralgia COMPARISON: None available. TECHNIQUE: Multiecho multiplanar sequences were performed through the cervical spine without the use of intravenous contrast. FINDINGS: Normal lordotic curvature. Craniocervical junction unremarkable. Vertebral body heights preserved. No marrow signal abnormality. Normal cervical cord. No prevertebral or paraspinal abnormality. C2-C3: No disc herniation, spinal canal stenosis or neural foraminal narrowing. C3-C4: No disc herniation, spinal canal stenosis or neural foraminal narrowing. C4-C5: A small central disc protrusion is appreciated without spinal canal stenosis or neural foraminal narrowing. C5-C6: No definite disc herniation is identified although generalized disc bulging abuts the ventral cord without deformity, likely impinging ventral nerve roots somewhat. A borderline central stenosis results. Foraminal osteophytes results in a moderate right neural foraminal stenosis with none at the left. C6-C7: Limited circumferential disc bulge is appreciated encroaching ventral nerve roots without significant central canal stenosis occurring. No neural foraminal stenosis bilaterally. C7-T1: No disc herniation, spinal canal stenosis or neural foraminal narrowing. OTHER FINDINGS: None. IMPRESSION: 1. No large disc herniation or severe spinal stenosis. 2. Circumferential bulging at C5-6 abuts the ventral cord surface without deformity causing borderline central stenosis. Moderate degenerative right neural foraminal stenosis identified with none on the left. 3. Limited circumferential disc bulge C6-7 without disc herniation, central canal or neural foraminal stenosis.
[2018-04-03 12:34] LABS: CK-MB 0.86 ng/mL (0.0-3.38)
[2018-04-03] MEDS: Magnesium Sulfate 1 gm in D5W 1 GM/100 ML BAG IVPB SCH ×2 (16:15→16:50)
[2018-04-03] MEDS ORDERED: Valproate 500 MG in Sodium Chloride 0.9% 100 ML IVPB ONE (16:18)
--- NOTE | 2018-04-03 18:53 | CP.PCM.PN ---
<Zamzam Cardenas - Last Filed: 04/03/18 18:50> Subjective - Date & Time of Evaluation Date of Evaluation: 04/03/18 Time of Evaluation: 10:30 - Subjective Subjective: PGY-1 Medicine Progress Note for Dr. Quiñonez Patient was seen and examined today at bedside in no acute distress. Nurse reports no overnight events. Patient reports feeling better and more calm than yesterday. Upon re-eval after MRI, patient was experiencing chest pain from the anxiety of the MRI. Denies shortness of breath, nausea, vomiting, constipation, diarrhea. Objective - Vital Signs/Intake and Output Vital Signs (last 24 hours): Temp Pulse Resp BP Pulse Ox 98.1 F 65 18 111/70 98 04/03/18 15:58 04/03/18 15:58 04/03/18 15:58 04/03/18 15:58 04/03/18 15:58 Intake and Output: 04/03/18 04/03/18 06:59 18:59 Intake Total 250 Balance 250 - Medications Medications: Current Medications Acetaminophen (Tylenol 325mg Tab) 650 mg PO Q6 PRN PRN Reason: Pain, Mild (1-3) Last Admin: 04/03/18 14:53 Dose: 650 mg Aspirin (Aspirin Chewable) 81 mg PO DAILY [facility] Last Admin: 04/03/18 10:05 Dose: 81 mg Carvedilol (Coreg) 6.25 mg PO BID [facility] Last Admin: 04/03/18 17:43 Dose: 6.25 mg Diazepam (Valium) 2 mg PO Q6 PRN PRN Reason: Muscle spasm Heparin Sodium (Porcine) (Heparin) 5,000 units SC Q8 [facility] Last Admin: 04/03/18 13:28 Dose: 5,000 units Hydrochlorothiazide (Hydrodiuril) 25 mg PO DAILY [facility] Last Admin: 04/03/18 10:05 Dose: 25 mg Influenza Virus Vaccine (Flucelvax Quad [id number] Syr) 60 mcg IM .ONCE ONE Stop: 04/04/18 10:01 Ketorolac Tromethamine (Toradol) 15 mg IVP Q6 PRN PRN Reason: Pain, moderate (4-7) Lisinopril (Zestril) 10 mg PO DAILY [facility] Last Admin: 04/03/18 10:05 Dose: 10 mg Rosuvastatin Calcium (Crestor) 10 mg PO HS [facility] Last Admin: 04/02/18 23:22 Dose: 10 mg - Labs Labs: 04/03/18 04:15 04/03/18 04:15 PT 12.4 SECONDS (9.7-12.2) H 04/02/18 15:55 INR 1.1 04/02/18 15:55 APTT 32 SECONDS (21-34) 04/02/18 15:55 - Constitutional Appears: Well, No Acute Distress - Head Exam Head Exam: ATRAUMATIC, NORMOCEPHALIC - Eye Exam Eye Exam: EOMI, Normal appearance - ENT Exam ENT Exam: Mucous Membranes Moist - Respiratory Exam Respiratory Exam: Clear to Ausculation Bilateral, NORMAL BREATHING PATTERN. absent: Rales, Rhonchi, Wheezes - Cardiovascular Exam Cardiovascular Exam: REGULAR RHYTHM, +S1, +S2. absent: Murmur - GI/Abdominal Exam GI & Abdominal Exam: Soft, Normal Bowel Sounds. absent: Firm, Guarding - Extremities Exam Extremities Exam: Normal Capillary Refill. absent: Calf Tenderness, Pedal Edema Additional comments: peripheral pulses palpable bilaterally (radial, DP) IV access in L AC - Neurological Exam Neurological Exam: Alert, Awake, Oriented x3 - Psychiatric Exam Psychiatric exam: Normal Affect, Normal Mood - Skin Skin Exam: Dry, Intact, Normal Color, Warm Assessment and Plan - Assessment and Plan (Free Text) Assessment: 52 year old female with PMHx of HTN and [place] 7 years ago presents to ED with headache and chest pain. Plan: Headache, likely secondary to occipital neuralgia -ESR 25 -CT head (04/02): mild scattered non-specific white matter changes -MRI Cspine (04/03): no large disc herniation or severe spinal stenosis. circumferential bulging at C5-6 abuts the ventral cord surface without deformity causing borderline central stenosis. Moderate degen R neural foraminal stenosis identified. Limited circumferential disc bulge C6-7 with herniation -Neurology consulted, help appreciated. -Decadron, depakote, magnesium -inject trigger point if not improved tomorrow -Valium 2mg PO Q6H PRN muscle spasm -Toradol 15mg IV Q6H PRN moderate pain -Tylenol 650mg PO Q6H PRN for mild pain Chest pain rule out ACS -Hx [place] 7 years ago -EKG: Sinus bradycardia at 53bpm, no ST changes -KANE and EKG neg x4. -Hgb A1c 6.6 -Lipid Panel: TG 389 Chol 132 LDL 75 HDL 21 -TSH 4.85 Prophylaxis -Heparin 5000u Q8H -SCDs -Diet: HHD -PT d/w Dr. Olamide Cardenas PGY-1 <Henok Quiñonez - Last Filed: 04/04/18 07:49> Objective - Vital Signs/Intake and Output Vital Signs (last 24 hours): Temp Pulse Resp BP Pulse Ox 98.1 F 61 20 95/52 L 97 04/04/18 05:00 04/04/18 05:00 04/04/18 05:00 04/04/18 05:00 04/04/18 05:00 Intake and Output: 04/04/18 04/04/18 06:59 18:59 Intake Total 120 Balance 120 - Medications Medications: Current Medications Acetaminophen (Tylenol 325mg Tab) 650 mg PO Q6 PRN PRN Reason: Pain, Mild (1-3) Last Admin: 04/03/18 14:53 Dose: 650 mg Aspirin (Aspirin Chewable) 81 mg PO DAILY [facility] Last Admin: 04/03/18 10:05 Dose: 81 mg Carvedilol (Coreg) 6.25 mg PO BID [facility] Last Admin: 04/03/18 17:43 Dose: 6.25 mg Diazepam (Valium) 2 mg PO Q6 PRN PRN Reason: Muscle spasm Heparin Sodium (Porcine) (Heparin) 5,000 units SC Q8 [facility] Last Admin: 04/04/18 05:29 Dose: 5,000 units Hydrochlorothiazide (Hydrodiuril) 25 mg PO DAILY [facility] Last Admin: 04/03/18 10:05 Dose: 25 mg Influenza Virus Vaccine (Flucelvax Quad [id number] Syr) 60 mcg IM .ONCE ONE Stop: 04/04/18 10:01 Ketorolac Tromethamine (Toradol) 15 mg IVP Q6 PRN PRN Reason: Pain, moderate (4-7) Lisinopril (Zestril) 10 mg PO DAILY [facility] Last Admin: 04/03/18 10:05 Dose: 10 mg Rosuvastatin Calcium (Crestor) 10 mg PO HS [facility] Last Admin: 04/03/18 21:19 Dose: 10 mg - Labs Labs: 04/04/18 06:46 04/04/18 06:46 PT 12.4 SECONDS (9.7-12.2) H 04/02/18 15:55 INR 1.1 04/02/18 15:55 APTT 32 SECONDS (21-34) 04/02/18 15:55 Attending/Attestation - Attestation I have personally seen and examined this patient.: Yes I have fully participated in the care of the patient.: Yes I have reviewed all pertinent clinical information, including history, physical exam and plan: Yes Notes (Text): Medical attending: Patient was seen and examined by me. 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 She was able to stand on her toes, also when standing was able to balance herself on each foot Henok Quiñonez
[2018-04-04 07:17] LABS: BASO % 0.3 % (0.0-2.0); HEMOGLOBIN 12.5 g/dL (11.0-16.0); LYMPH # 1.1 K/uL (1.0-4.3); LYMPH % 10.5 % (20.0-40.0); MEAN CELL VOLUME 85.9 fL (81.0-99.0); MEAN CORPUSCULAR HEMOGLOBIN 29.8 pg (27.0-31.0); MEAN CORPUSCULAR HGB CONC 34.7 g/dL (33.0-37.0); MEAN PLATELET VOLUME 7.1 fL (7.2-11.7); MONO # 0.2 K/uL (0.0-0.8); MONO % 2.3 % (0.0-10.0); NEUT # 8.7 K/uL (1.8-7.0); NEUT % 86.9 % (50.0-75.0); RBC 4.2 Mil/uL (3.80-5.20); RED CELL DISTRIBUTION WIDTH 13.7 % (11.5-14.5)
[2018-04-04 07:20] LABS: WHITE BLOOD COUNT 10.1 K/uL (4.8-10.8)
[2018-04-04 07:31] LABS: ALB/GLOB RATIO 1.2 (1.0-2.1); ALBUMIN 4.3 g/dL (3.5-5.0); ALT/SGPT 49 U/L (9-52); AST/SGOT 40 U/L (14-36); BLOOD UREA NITROGEN 13 mg/dL (7-17); GFR NON-AFRICAN AMERICAN > 60
[2018-04-04 08:31] VITALS: O2SAT 96
[2018-04-04] MEDS ORDERED: Influenza Vaccine 60 mcg/0.5 mL SYR (4YR UP) IM ONE (10:00)
--- NOTE | 2018-04-04 10:17 | CP.PCM.PN ---
<Ida Ross - Last Filed: 04/04/18 14:44> Subjective - Date & Time of Evaluation Date of Evaluation: 04/04/18 Time of Evaluation: 09:00 - Subjective Subjective: Neurology Follow Up Note Patient was seen and examined at bedside. Patient reports her headache improved after yesterday's medication. She feels her neck muscles are looser today. Denied any current headache, blurry vision, photophobia, nausea, vomiting. Objective - Vital Signs/Intake and Output Vital Signs (last 24 hours): Temp Pulse Resp BP Pulse Ox 98.0 F 65 18 115/68 96 04/04/18 07:00 04/04/18 07:09 04/04/18 07:00 04/04/18 07:00 04/04/18 07:00 Intake and Output: 04/04/18 04/04/18 06:59 18:59 Intake Total 120 Balance 120 - Medications Medications: Current Medications Acetaminophen (Tylenol 325mg Tab) 650 mg PO Q6 PRN PRN Reason: Pain, Mild (1-3) Last Admin: 04/04/18 10:03 Dose: 650 mg Aspirin (Aspirin Chewable) 81 mg PO DAILY [facility] Last Admin: 04/04/18 10:01 Dose: 81 mg Carvedilol (Coreg) 6.25 mg PO BID [facility] Last Admin: 04/04/18 10:02 Dose: 6.25 mg Diazepam (Valium) 2 mg PO Q6 PRN PRN Reason: Muscle spasm Heparin Sodium (Porcine) (Heparin) 5,000 units SC Q8 [facility] Last Admin: 04/04/18 05:29 Dose: 5,000 units Hydrochlorothiazide (Hydrodiuril) 25 mg PO DAILY [facility] Last Admin: 04/04/18 10:01 Dose: 25 mg Ketorolac Tromethamine (Toradol) 15 mg IVP Q6 PRN PRN Reason: Pain, moderate (4-7) Lisinopril (Zestril) 10 mg PO DAILY [facility] Last Admin: 04/04/18 10:01 Dose: 10 mg Rosuvastatin Calcium (Crestor) 10 mg PO HS [facility] Last Admin: 04/03/18 21:19 Dose: 10 mg - Labs Labs: 04/04/18 06:46 04/04/18 06:46 PT 12.4 SECONDS (9.7-12.2) H 04/02/18 15:55 INR 1.1 04/02/18 15:55 APTT 32 SECONDS (21-34) 04/02/18 15:55 - Additional Findings Additional findings: - Constitutional Appears: No Acute Distress - Head Exam Head Exam: NORMAL INSPECTION, NORMOCEPHALIC - Eye Exam Eye Exam: PERRL - ENT Exam ENT Exam: Mucous Membranes Moist - Respiratory Exam Respiratory Exam: Clear to Auscultation Bilateral, NORMAL BREATHING PATTERN - Cardiovascular Exam Cardiovascular Exam: +S1, +S2 - GI/Abdominal Exam GI & Abdominal Exam: Normal Bowel Sounds, Soft. absent: Distended, Tenderness - Rectal Exam Rectal Exam: Deferred - Extremities Exam Extremities exam: Positive for: normal inspection, pedal pulses present. Negative for: pedal edema, tenderness - Back Exam Back exam: muscle spasm, NORMAL INSPECTION Additional comments: No longer TTP, right tender point noted around C7/ T1 not felt today - Neurological Exam Neurological exam: Alert, CN II-XII Intact, Normal Gait, Oriented x3, Reflexes Normal - Expanded Neurological Exam Expanded Patient oriented to: person, place, time Cerebellar Function: Finger to Nose: Normal Sensory exam: Lower Extremity Pin Prick: Normal, Upper Extremity Light Touch: Normal Neuro motor strength exam: Left Upper Extremity: 5, Right Upper Extremity: 5, Left Lower Extremity: 5, Right Lower Extremity: 5 DTR: Bicep Left: 2+, Bicep Right: 2+, Patellar Left: 2+, Patellar Right: 2+ - Psychiatric Exam Psychiatric exam: Normal Affect, Normal Mood - Skin Skin Exam: Dry, Intact, Normal Color, Warm Assessment and Plan - Assessment and Plan (Free Text) Plan: Migraine Imaging: - Head CT without contrast: Mild scattered nonspecific white matter changes. - Cervical MRI: 1. No large disc herniation or severe spinal stenosis. 2. Circumferential bulging at C5-6 abuts the ventral cord surface without deformity causing borderline central stenosis. Moderate degenerative right neural foraminal stenosis identified with none on the left. 3. Limited circumferential disc bulge C6-7 without disc herniation, central canal or neural foraminal stenosis Management: - Given one time dose of decadron, magnesium sulfate 2gm, and depakote 500mg IV - alleviated patient's migraine - Patient is still experiencing pain at tender point noted C7/T1 (right), will inject Lidocaine into TP - Recommend prophylaxis Topamax 25mg PO daily and magnesium 400mg PO BID - Please follow up with Dr. Messer in 2 weeks to adjust the topamax Thank you for the interesting consult. Case discussed with Ida Alvarez DO, PGY2 <Danielito Messer - Last Filed: 04/04/18 17:49> Objective - Vital Signs/Intake and Output Vital Signs (last 24 hours): Temp Pulse Resp BP Pulse Ox 98.9 F 72 20 111/59 L 96 04/04/18 15:00 04/04/18 15:00 04/04/18 15:00 04/04/18 15:00 04/04/18 15:00 Intake and Output: 04/04/18 04/04/18 06:59 18:59 Intake Total 120 200 Balance 120 200 - Medications Medications: Current Medications Acetaminophen (Tylenol 325mg Tab) 650 mg PO Q6 PRN PRN Reason: Pain, Mild (1-3) Last Admin: 04/04/18 10:03 Dose: 650 mg Aspirin (Aspirin Chewable) 81 mg PO DAILY [facility] Last Admin: 04/04/18 10:01 Dose: 81 mg Carvedilol (Coreg) 6.25 mg PO BID [facility] Last Admin: 04/04/18 17:36 Dose: 6.25 mg Diazepam (Valium) 2 mg PO Q6 PRN PRN Reason: Muscle spasm Heparin Sodium (Porcine) (Heparin) 5,000 units SC Q8 [facility] Last Admin: 04/04/18 13:05 Dose: 5,000 units Hydrochlorothiazide (Hydrodiuril) 25 mg PO DAILY [facility] Last Admin: 04/04/18 10:01 Dose: 25 mg Ketorolac Tromethamine (Toradol) 15 mg IVP Q6 PRN PRN Reason: Pain, moderate (4-7) Lisinopril (Zestril) 10 mg PO DAILY [facility] Last Admin: 04/04/18 10:01 Dose: 10 mg Rosuvastatin Calcium (Crestor) 10 mg PO HS [facility] Last Admin: 04/03/18 21:19 Dose: 10 mg - Labs Labs: 04/04/18 06:46 04/04/18 06:46 PT 12.4 SECONDS (9.7-12.2) H 04/02/18 15:55 INR 1.1 04/02/18 15:55 APTT 32 SECONDS (21-34) 04/02/18 15:55 Attending/Attestation - Attestation I have personally seen and examined this patient.: Yes I have fully participated in the care of the patient.: Yes I have reviewed all pertinent clinical information, including history, physical exam and plan: Yes Notes (Text): 04/04/18 17:48 I agree with the assessment and plan. I treated the patient with lidocaine trigger point injections in the trapezius muscle. Will start her on topamax for migraine prophylaxis as well as magnesium oxide.
[2018-04-04] MEDS ORDERED: Influenza Vaccine 60 MCG/0.5 ML SYR (3 yr & up) IM ONE (11:07)
[2018-04-04] MEDS ORDERED: Influenza Vaccine 22.5 mcg/0.25 ml Syr (6 - 35 months) IM ONE (12:00)
--- NOTE | 2018-04-04 12:24 | CARD ---
APPROVED REPORT Date of service: 04/03/2018 EKG Measurement Heart [id number] <Conclusion> Normal sinus rhythm Normal ECG
[2018-04-04] MEDS ORDERED: Lidocaine 1% Inj (20ml) IV ONE (13:48)
--- NOTE | 2018-04-04 15:46 | CP.PCM.DIS ---
<Zamzam Cardenas - Last Filed: 04/04/18 17:58> Provider - Provider Date of Admission: 04/02/18 17:00 Attending physician: Henok Quiñonez DO Time Spent in preparation of Discharge (in minutes): 45 Diagnosis - Discharge Diagnosis (1) Migraine Status: Acute (2) Chest pain, rule out acute myocardial infarction Status: Acute Hospital Course - Lab Results Lab Results: Most Recent Lab Values WBC 10.1 K/uL (4.8-10.8) D 04/04/18 06:46 RBC 4.20 Mil/uL (3.80-5.20) 04/04/18 06:46 Hgb 12.5 g/dL (11.0-16.0) 04/04/18 06:46 Hct 36.1 % (34.0-47.0) 04/04/18 06:46 MCV 85.9 fL (81.0-99.0) 04/04/18 06:46 MCH 29.8 pg (27.0-31.0) 04/04/18 06:46 MCHC 34.7 g/dL (33.0-37.0) 04/04/18 06:46 RDW 13.7 % (11.5-14.5) 04/04/18 06:46 Plt Count 289 K/uL (130-400) 04/04/18 06:46 MPV 7.1 fL (7.2-11.7) L 04/04/18 06:46 Neut % (Auto) 86.9 % (50.0-75.0) H 04/04/18 06:46 Lymph % (Auto) 10.5 % (20.0-40.0) L 04/04/18 06:46 [place] % (Auto) 2.3 % (0.0-10.0) 04/04/18 06:46 Eos % (Auto) 0.0 % (0.0-4.0) 04/04/18 06:46 Baso % (Auto) 0.3 % (0.0-2.0) 04/04/18 06:46 Neut # (Auto) 8.7 K/uL (1.8-7.0) H 04/04/18 06:46 Lymph # (Auto) 1.1 K/uL (1.0-4.3) 04/04/18 06:46 [place] # (Auto) 0.2 K/uL (0.0-0.8) 04/04/18 06:46 Eos # (Auto) 0.0 K/uL (0.0-0.7) 04/04/18 06:46 Baso # (Auto) 0.0 K/uL (0.0-0.2) 04/04/18 06:46 ESR 25 mm/hr (0-20) H 04/02/18 15:55 PT 12.4 SECONDS (9.7-12.2) H 04/02/18 15:55 INR 1.1 04/02/18 15:55 APTT 32 SECONDS (21-34) 04/02/18 15:55 Sodium 137 mmol/L (132-148) 04/04/18 06:46 Potassium 4.3 mmol/L (3.6-5.2) 04/04/18 06:46 Chloride 100 mmol/L (98-107) 04/04/18 06:46 Carbon Dioxide 25 mmol/L (22-30) 04/04/18 06:46 Anion Gap 17 (10-20) 04/04/18 06:46 BUN 13 mg/dL (7-17) 04/04/18 06:46 Creatinine 0.5 mg/dL (0.7-1.2) L 04/04/18 06:46 Est GFR ( Amer) > 60 04/04/18 06:46 Est GFR (Non-Af Amer) > 60 04/04/18 06:46 POC Glucose (mg/dL) 209 mg/dL (65-110) H 04/04/18 05:59 Random Glucose 216 mg/dL (65-105) H 04/04/18 06:46 Hemoglobin A1c 6.6 % (4.2-6.5) H 04/03/18 04:15 Calcium 9.0 mg/dl (8.6-10.4) 04/04/18 06:46 Phosphorus 3.3 mg/dL (2.5-4.5) 04/04/18 06:46 Magnesium 2.2 mg/dL (1.6-2.3) 04/04/18 06:46 Total Bilirubin 0.4 mg/dL (0.2-1.3) 04/04/18 06:46 AST 40 U/L (14-36) H D 04/04/18 06:46 ALT 49 U/L (9-52) 04/04/18 06:46 Alkaline Phosphatase 48 U/L (38-126) 04/04/18 06:46 Total Creatine Kinase 84 U/L (30-135) 04/03/18 12:00 CK-MB (Mass) 0.86 ng/mL (0.0-3.38) 04/03/18 12:00 Troponin I < 0.0120 ng/mL (0.00-0.120) 04/03/18 12:00 C-React Prot High Sens 2.11 mg/L (1.00-3.00) 04/02/18 15:55 NT-Pro-B Natriuret Pep 36.2 pg/mL (0-900) 04/02/18 15:55 Total Protein 8.0 g/dL (6.3-8.3) 04/04/18 06:46 Albumin 4.3 g/dL (3.5-5.0) 04/04/18 06:46 Globulin 3.7 gm/dL (2.2-3.9) 04/04/18 06:46 Albumin/Globulin Ratio 1.2 (1.0-2.1) 04/04/18 06:46 Triglycerides 389 mg/dL (0-149) H D 04/03/18 04:15 Cholesterol 132 mg/dL (0-199) 04/03/18 04:15 LDL Cholesterol Direct 75 mg/dL (0-129) 04/03/18 04:15 HDL Cholesterol 21 mg/dL (30-70) L 04/03/18 04:15 TSH 3rd Generation 4.85 mIU/L (0.46-4.68) H 04/03/18 04:15 Urine Color Yellow (YELLOW) 04/02/18 16:22 Urine Clarity Clear (Clear) 04/02/18 16:22 Urine pH 6.0 (5.0-8.0) 04/02/18 16:22 Ur Specific [place] 1.024 (1.003-1.030) 04/02/18 16:22 Urine Protein Negative mg/dL (NEGATIVE) 04/02/18 16:22 Urine Glucose (UA) Normal mg/dL (Normal) 04/02/18 16:22 Urine Ketones Negative mg/dL (NEGATIVE) 04/02/18 16:22 Urine Blood 1+ (NEGATIVE) H 04/02/18 16:22 Urine Nitrate Negative (NEGATIVE) 04/02/18 16:22 Urine Bilirubin Negative (NEGATIVE) 04/02/18 16:22 Urine Urobilinogen 4.0 mg/dL (0.2-1.0) H 04/02/18 16:22 Ur Leukocyte Esterase Neg Raymond/uL (Negative) 04/02/18 16:22 Urine WBC (Auto) 3 /hpf (0-5) 04/02/18 16:22 Urine RBC (Auto) 12 /hpf (0-3) H 04/02/18 16:22 Ur Squamous Epith Cells 8 /hpf (0-5) H 04/02/18 16:22 Urine Bacteria Occ (<OCC) H 04/02/18 16:22 Urine Opiates Screen Negative (NEGATIVE) 04/02/18 16:36 Urine Methadone Screen Negative (NEGATIVE) 04/02/18 16:36 Ur Barbiturates Screen Negative (NEGATIVE) 04/02/18 16:36 Ur Phencyclidine Scrn Negative (NEGATIVE) 04/02/18 16:36 Ur Amphetamines Screen Negative (NEGATIVE) 04/02/18 16:36 U Benzodiazepines Scrn Negative (NEGATIVE) 04/02/18 16:36 U Oth Cocaine Metabols Negative (NEGATIVE) 04/02/18 16:36 U Cannabinoids Screen Negative (NEGATIVE) 04/02/18 16:36 - Hospital Course Hospital Course: Patient is a 52 year old female with past medical history HTN and TN 7 years ago in [facility] who presents to ED with complaint of headache that began one week ago and gradually worsened to a 10/10 pain 3 days ago. Pain starts in the occiput and radiates down to the neck and behind R eye. Pain is described as pressure and needles in the R eye. Patient states Aspirin would initially improve the pain, but it has not provided any relief in the last 3 days. Pain is associated with intermittent blurred vision that is worse with reading. Patient also complains of intermittent L sided chest pain that began yesterday and worsened at night. Pain is described as pressure. Pain does not radiate. Aspirin provided no relief. Also complains of nausea, shortness of breath, diaphoresis, generalized weakness and dry cough. Patient denies fever, chills, lightheadedness, abdominal pain, diarrhea, focal weakness, vomiting, recent illness, recent travel, and sick contacts. Patient also reports leg swelling. CXR showed no focal consolidation, significant pleural effusion, or definite pneumothorax. Head CT mild scattered nonspecific white changes. MRI CSpine showed circumferential bulging at C5-6 abuts the ventral cord surface without deformity causing borderline central stenosis. Limited circumferentail disc buldge C6-7 without disc herniation, central canal or neural foraminal stenosis. Neuro did a one time dose of Decadron and Depakote. Started Magnesium sulfate and did a one time injection of a trigger point. Her chest pain has continued, however, ROMIs and EKGs were negative x4. With the chest pain being reproducible, the patient has improved. Primary Diagnosis: Migraine, Chest Pain r/o ACS Patient is clear for discharge per Drs. Quiñonez and Ayde. She is being started on Topamax daily to help her migraines and should take it as prescribed: Topamax 25mg by mouth once a day She is also having the following home medications changed: Rosuvastain is being increased from 5 to 10mg daily Lisinopril is being changed to 10mg daily She can otherwise stick with her home medications. She is to return to the [facility] within one week for followup and reconciliation of her medications. She is also to follow up at Dr. Messer's office to titrate the Topamax within two weeks. If symptoms should return or worsen, do not hesitate to return to the ED. Plan discussed with patient who understands and agrees. This is a summary of the hospital course. Please refer to the EMR for more d etail. - Date & Time of H&P Date of H&P: 04/04/18 Time of H&P: 14:00 Discharge Exam - Head Exam Head Exam: ATRAUMATIC, NORMOCEPHALIC - Eye Exam Eye Exam: EOMI, Normal appearance Pupil Exam: NORMAL ACCOMODATION Additional comments: eye no longer injected, tearing - ENT Exam ENT Exam: Mucous Membranes Moist - Respiratory Exam Respiratory Exam: Clear to PA & Lateral, NORMAL BREATHING PATTERN, UNREMARKABLE. absent: Rales, Rhonchi, Wheezes - Cardiovascular Exam Cardiovascular Exam: REGULAR RHYTHM, +S1, +S2. absent: Gallop, Rubs, Systolic Murmur Additional comments: reproducible chest pain upon deep palpation - GI/Abdominal Exam GI & Abdominal Exam: Normal Bowel Sounds, Soft. absent: Tenderness Discharge Plan - Discharge Medications Prescriptions: Lisinopril [Zestril] 10 mg PO DAILY #30 tab Rosuvastatin Calcium [Crestor] 10 mg PO HS #30 tab Topiramate [Topamax] 25 mg PO DAILY #42 tab - Follow Up Plan Condition: STABLE Disposition: HOME/ ROUTINE Instructions: Heart Healthy Diet, Migraine Headache (DC), Chest Pain (DC), Lisinopril, Rosuvastatin, Topiramate Additional Instructions: Patient is clear for discharge per Drs. Quiñonez and Ayde. She is being started on Topamax daily to help her migraines and should take it as prescribed: You will be taking topamax: Week 1: 25mg every morning. Week 2: 25mg twice a day. Week 3: 25mg in the morning and then 2 tablets at night. (you may experience paresthesia/ numbness / tingling in your fingers, that is a normal side effect) She is also having the following home medications changed: Rosuvastain is being increased from 5 to 10mg daily Lisinopril is being changed to 10mg daily She can otherwise stick with her home medications. She is to return to the [facility] within one week for followup and reconciliation of her medications. She is also to follow up at Dr. Messer's office to titrate the Topamax within two weeks. If symptoms should return or worsen, do not hesitate to return to the ED. Plan discussed with patient who understands and agrees. ----- El paciente est listo para el alberto por los Dres. Olamide Messer. Krystle est empezando a ken Topamax diariamente para ayudarla con alba migraas y debe tomarla segn lo prescrito: Estars tomando topamax: Semana 1: 25 mg cada maana. Semana 2: 25 mg dos veces al da. Semana 3: 25 mg por la maana y luego 2 tabletas por la noche. (Es posible que experimente parestesia / adormecimiento / hormigueo en los dedos, es un efecto secundario normal) Krystle quincy est teniendo los siguientes medicamentos en casa cambiados: Rosuvastain se incrementa de 5 a 10 mg al da. Lisinopril se est cambiando a 10 mg al da De lo contrario, puede seguir con alba medicamentos caseros. Krystle debe regresar a la [facility] dentro de jaquelin semana para el seguimiento y la conciliacin de alba medicamentos. Zackbin debe hacer un seguimiento en la oficina del Dr. Messer para titular Topamax dentro de dos semanas. Si los sntomas reaparecen o empeoran, no dude en regresar al servicio de urgencias. Plan discutido con el paciente que entiende y acepta. Referrals: [facility] [Outside] Danielito Messer MD [Staff Provider] - <Henok Quiñonez - Last Filed: 04/04/18 18:32> Provider - Provider Date of Admission: 04/02/18 17:00 Attending physician: Henok Quiñonez DO Hospital Course - Lab Results Lab Results: Most Recent Lab Values WBC 10.1 K/uL (4.8-10.8) D 04/04/18 06:46 RBC 4.20 Mil/uL (3.80-5.20) 04/04/18 06:46 Hgb 12.5 g/dL (11.0-16.0) 04/04/18 06:46 Hct 36.1 % (34.0-47.0) 04/04/18 06:46 MCV 85.9 fL (81.0-99.0) 04/04/18 06:46 MCH 29.8 pg (27.0-31.0) 04/04/18 06:46 MCHC 34.7 g/dL (33.0-37.0) 04/04/18 06:46 RDW 13.7 % (11.5-14.5) 04/04/18 06:46 Plt Count 289 K/uL (130-400) 04/04/18 06:46 MPV 7.1 fL (7.2-11.7) L 04/04/18 06:46 Neut % (Auto) 86.9 % (50.0-75.0) H 04/04/18 06:46 Lymph % (Auto) 10.5 % (20.0-40.0) L 04/04/18 06:46 [place] % (Auto) 2.3 % (0.0-10.0) 04/04/18 06:46 Eos % (Auto) 0.0 % (0.0-4.0) 04/04/18 06:46 Baso % (Auto) 0.3 % (0.0-2.0) 04/04/18 06:46 Neut # (Auto) 8.7 K/uL (1.8-7.0) H 04/04/18 06:46 Lymph # (Auto) 1.1 K/uL (1.0-4.3) 04/04/18 06:46 [place] # (Auto) 0.2 K/uL (0.0-0.8) 04/04/18 06:46 Eos # (Auto) 0.0 K/uL (0.0-0.7) 04/04/18 06:46 Baso # (Auto) 0.0 K/uL (0.0-0.2) 04/04/18 06:46 ESR 25 mm/hr (0-20) H 04/02/18 15:55 PT 12.4 SECONDS (9.7-12.2) H 04/02/18 15:55 INR 1.1 04/02/18 15:55 APTT 32 SECONDS (21-34) 04/02/18 15:55 Sodium 137 mmol/L (132-148) 04/04/18 06:46 Potassium 4.3 mmol/L (3.6-5.2) 04/04/18 06:46 Chloride 100 mmol/L (98-107) 04/04/18 06:46 Carbon Dioxide 25 mmol/L (22-30) 04/04/18 06:46 Anion Gap 17 (10-20) 04/04/18 06:46 BUN 13 mg/dL (7-17) 04/04/18 06:46 Creatinine 0.5 mg/dL (0.7-1.2) L 04/04/18 06:46 Est GFR ( Amer) > 60 04/04/18 06:46 Est GFR (Non-Af Amer) > 60 04/04/18 06:46 POC Glucose (mg/dL) 209 mg/dL (65-110) H 04/04/18 05:59 Random Glucose 216 mg/dL (65-105) H 04/04/18 06:46 Hemoglobin A1c 6.6 % (4.2-6.5) H 04/03/18 04:15 Calcium 9.0 mg/dl (8.6-10.4) 04/04/18 06:46 Phosphorus 3.3 mg/dL (2.5-4.5) 04/04/18 06:46 Magnesium 2.2 mg/dL (1.6-2.3) 04/04/18 06:46 Total Bilirubin 0.4 mg/dL (0.2-1.3) 04/04/18 06:46 AST 40 U/L (14-36) H D 04/04/18 06:46 ALT 49 U/L (9-52) 04/04/18 06:46 Alkaline Phosphatase 48 U/L (38-126) 04/04/18 06:46 Total Creatine Kinase 84 U/L (30-135) 04/03/18 12:00 CK-MB (Mass) 0.86 ng/mL (0.0-3.38) 04/03/18 12:00 Troponin I < 0.0120 ng/mL (0.00-0.120) 04/03/18 12:00 C-React Prot High Sens 2.11 mg/L (1.00-3.00) 04/02/18 15:55 NT-Pro-B Natriuret Pep 36.2 pg/mL (0-900) 04/02/18 15:55 Total Protein 8.0 g/dL (6.3-8.3) 04/04/18 06:46 Albumin 4.3 g/dL (3.5-5.0) 04/04/18 06:46 Globulin 3.7 gm/dL (2.2-3.9) 04/04/18 06:46 Albumin/Globulin Ratio 1.2 (1.0-2.1) 04/04/18 06:46 Triglycerides 389 mg/dL (0-149) H D 04/03/18 04:15 Cholesterol 132 mg/dL (0-199) 04/03/18 04:15 LDL Cholesterol Direct 75 mg/dL (0-129) 04/03/18 04:15 HDL Cholesterol 21 mg/dL (30-70) L 04/03/18 04:15 TSH 3rd Generation 4.85 mIU/L (0.46-4.68) H 04/03/18 04:15 Urine Color Yellow (YELLOW) 04/02/18 16:22 Urine Clarity Clear (Clear) 04/02/18 16:22 Urine pH 6.0 (5.0-8.0) 04/02/18 16:22 Ur Specific [place] 1.024 (1.003-1.030) 04/02/18 16:22 Urine Protein Negative mg/dL (NEGATIVE) 04/02/18 16:22 Urine Glucose (UA) Normal mg/dL (Normal) 04/02/18 16:22 Urine Ketones Negative mg/dL (NEGATIVE) 04/02/18 16:22 Urine Blood 1+ (NEGATIVE) H 04/02/18 16:22 Urine Nitrate Negative (NEGATIVE) 04/02/18 16:22 Urine Bilirubin Negative (NEGATIVE) 04/02/18 16:22 Urine Urobilinogen 4.0 mg/dL (0.2-1.0) H 04/02/18 16:22 Ur Leukocyte Esterase Neg [place]/uL (Negative) 04/02/18 16:22 Urine WBC (Auto) 3 /hpf (0-5) 04/02/18 16:22 Urine RBC (Auto) 12 /hpf (0-3) H 04/02/18 16:22 Ur Squamous Epith Cells 8 /hpf (0-5) H 04/02/18 16:22 Urine Bacteria Occ (<OCC) H 04/02/18 16:22 Urine Opiates Screen Negative (NEGATIVE) 04/02/18 16:36 Urine Methadone Screen Negative (NEGATIVE) 04/02/18 16:36 Ur Barbiturates Screen Negative (NEGATIVE) 04/02/18 16:36 Ur Phencyclidine Scrn Negative (NEGATIVE) 04/02/18 16:36 Ur Amphetamines Screen Negative (NEGATIVE) 04/02/18 16:36 U Benzodiazepines Scrn Negative (NEGATIVE) 04/02/18 16:36 U Oth Cocaine Metabols Negative (NEGATIVE) 04/02/18 16:36 U Cannabinoids Screen Negative (NEGATIVE) 04/02/18 16:36 Attending/Attestation - Attestation I have personally seen and examined this patient.: Yes I have fully participated in the care of the patient.: Yes I have reviewed all pertinent clinical information, including history, physical exam and plan: Yes Notes (Text): 04/04/18 18:30 Medical attending: Patient was seen and examined by me when I came and saw the patient. The patient was not in any acute distress when we came and saw. Reviewed the above note by the resident and agree with the above note Patient is ambulating, less headache than previously The patient will be started on Topamax and we also gave her a Good RX discount card as well. Neurology also did a trigger point injection as well Henok Quiñonez
[2018-04-04 16:33] VITALS: BP 111/59; PULSE 72; RESP 20; TEMP 98.9
--- NOTE | 2018-04-04 21:00 | CARD ---
APPROVED REPORT Date of service: 04/02/2018 EKG Measurement Heart [id number] <Conclusion> Sinus bradycardia Otherwise normal ECG
--- NOTE | 2018-04-04 21:01 | CARD ---
APPROVED REPORT Date of service: 04/02/2018 EKG Measurement Heart [id number] <Conclusion> Normal sinus rhythm Normal ECG
== END 2018-04-04 18:26 | disposition home or self-care (01) ==
LOC: C.ER 15:10 → C.9E 17:00 → C.6T 19:38
PROVIDERS: ADMIT Hospitalist; ATTEND Hospitalist
DX: G43.909 Migraine, unspecified, not intractable, without status migrainosus (principal); R07.9 Chest pain, unspecified; I67.9 Cerebrovascular disease, unspecified; I10 Essential (primary) hypertension; I25.2 Old myocardial infarction; E78.00 Pure hypercholesterolemia, unspecified; E11.9 Type 2 diabetes mellitus without complications; E78.5 Hyperlipidemia, unspecified; F41.9 Anxiety disorder, unspecified
CPT/HCPCS: 36415; 70450; 71046; 72141; 80053; 80061; 80324; 80345; 80346; 80349; 80353; 80358; 80361; 81001; 82550; 82948; 83036; 83735; 83880; 83992; 84100; 84443; 84484; 85025; 85610; 85651; 85730; 86140; 90471; 90674; 93005; 96360; 96374; 97110; 97116; 97162; 99285; G0378; G8978; G8979; J1100; J1644; J1885; J2765; J3475; J7030